=== PATIENT | female | born 1965 | race Caucasian/White ===

== ENCOUNTER → 2018-07-02 | Outpatient (CLI) | payer SELFPAY ==
[~2018-07-02] MED LIST: FLT05NA16 NS; HYDR1TAB PO; LISI10TA PO; LISI20TA PO; LRT10T
== END ==
LOC: CARD 11:36
PROVIDERS: ATTEND Internal Medicine Cardiovascular Disease
DX: R07.89 Other chest pain (principal); I10 Essential (primary) hypertension; E78.5 Hyperlipidemia, unspecified; R06.02 Shortness of breath
CPT/HCPCS: 93306

== ENCOUNTER → 2018-07-10 | Outpatient (CLI) | payer OTHER ==
[~2018-07-10] MED LIST changes: +ALBU2.5V4 INH; +ALPR0.5T PO; +AMLO5TAB9 PO; +LEVO75TA6 PO; +LISI-552 PO
[2018-07-10 15:38] VITALS: BP 134/80
--- NOTE | 2018-07-10 15:38 | Cardiology Stress Test Report ---
Stress Test Report Date of Procedure/Referring: Date of Procedure: July 10, 2018 PCP Portia Elliott Admitting Physician No,Local Physician Indications: CP Baseline Heart Rate: 67 Baseline Blood Pressure: Blood Pressure Systolic: 134 Blood Pressure Diastolic: 80 Baseline EKG: Baseline EKG: sinus rhythm Summary/Conclusion: Summary: In summary, the patient started exercising with a baseline heart rate, blood pressure and EKG mentioned above Patient was able to exercise for a total of 7:30 minutes on Inderjit protocol, 9.1 METs Maximum heart rate 150 Maximum blood pressure 220/88 Stress EKG diffuse T-wave inversion, downsloping [address] depression in 23 aVF V4 V5 and V6 persisted during recovery Recovery EKG persisted during recovery Conclusion: 1. Good exercise tolerance for a total of 7:30 minutes on Inderjit protocol, 9.1 METs, achieving 88 percent of maximum expected heart rate 2. Diffuse ST depression in 23 aVF and V4, V5 and V6 with T-wave inversion persisted during recovery 3. No arrhythmia was noted MELODIE HOOD MD July 10, 2018 15:38
== END ==
LOC: CARD 13:25
PROVIDERS: ATTEND Physician Assistant
DX: R07.89 Other chest pain (principal); I10 Essential (primary) hypertension; R06.02 Shortness of breath
CPT/HCPCS: 93017

== ENCOUNTER 2018-07-17 06:53 | Day surgery (SDC) | payer OTHER ==
[2018-07-17] VITALS (7 sets, daily range): BP systolic 126–168; BP diastolic 72–99
[~2018-07-17] VITALS: Ht 160 cm; Wt 98.0 kg
[~2018-07-17 06:53] MED LIST changes: -ALBU2.5V4 INH; -ALPR0.5T PO; -AMLO5TAB9 PO; -LEVO75TA6 PO; -LISI-552 PO
[2018-07-17] MEDS ORDERED: NS IV 1000 ML 1,000 ML ONE (07:01)
[2018-07-17] MEDS ORDERED: LIDOCAINE 1% INJ 20 ML 20 ML VIAL ONE (07:01)
[2018-07-17] MEDS ORDERED: HEParin (CATH LAB) 2,000 ML IV ONE (07:01)
--- OUTSIDE RECORDS SUMMARY | 2018-07-17 07:27 | XMS REPORT ---
Author Author ANSHUL ROBLES Organization [facility] Address [address] [place] [address] Care Team Providers Care Security Operations Specialist Name Role Phone ANSHUL ROBLES Unavailable PROBLEMS Unknown Problems ALLERGIES No Information ENCOUNTERS Encounter Location Date Diagnosis [facility] [id number] [place] [phone] Sep, [facility] [id number] [place] [id number] Oct, Dental examination Z01.20 [facility] [id number] [place] [id number] Oct, Encounter for dental examination Z01.20 [facility] [id number] [place] [id number] Oct, Dental examination Z01.20 [facility] [id number] [place] [phone] Sep, [facility] [id number] [place] [phone] June, IMMUNIZATIONS No Known Immunizations SOCIAL HISTORY Never Assessed REASON FOR VISIT Vision appt PLAN OF CARE VITAL SIGNS MEDICATIONS Unknown Medications RESULTS No Results PROCEDURES No Known procedures INSTRUCTIONS MEDICATIONS ADMINISTERED No Known Medications MEDICAL (GENERAL) HISTORY Type Description Date Medical History High Blood Pressure
--- OUTSIDE RECORDS SUMMARY | 2018-07-17 07:27 | XMS REPORT ---
Author Author SAL HENSLEY Organization [facility] Address [address] [place] [address] Care Team Providers Care Grounds Crew Supervisor Name Role Phone SAL HENSLEY Unavailable PROBLEMS Type Condition ICD9-CM Code AXT25-UL Code Onset Dates Condition Status SNOMED Code Problem Encounter for dental examination Z01.20 Active 003248539 Assessment Encounter for dental examination Z01.20 Oct, Active [id number] ALLERGIES Substance Reaction Event Type Date Status Valium Unknown Drug Allergy Oct, Active Sulfamethoxazole Unknown Drug Allergy Oct, Active Percocet Unknown Drug Allergy Oct, Active Hydrocodone-Acetaminophen Unknown Drug Allergy Oct, Active Erythromycin Unknown Drug Allergy Oct, Active Codeine Sulfate Unknown Drug Allergy Oct, Active Clarithromycin Unknown Drug Allergy Oct, Active Cipro Unknown Drug Allergy Oct, Active Doxycycline Unknown Drug Allergy Oct, Active beta blockers Unknown Non Drug Allergy Oct, Active steroids Unknown Non Drug Allergy Oct, Active SOCIAL HISTORY No smoking Hx information available PLAN OF CARE VITAL SIGNS Blood pressure systolic 148 mmHg 2015-11-04 Blood pressure diastolic 90 mmHg 2015-11-04 MEDICATIONS Medication Instructions Dosage Frequency Start Date End Date Duration Status Lisinopril Active Levothyroxine Sodium Active RESULTS No Results PROCEDURES Procedure Date Ordered Related Diagnosis Body Site LTD ORAL EVALUATION - PROBLEM FOCUS Nov 04, 2015 INTRAORL-PERIAPICAL 1 FILM 18330 Nov 04, 2015 PRDONTAL SCAL and ROOT PLAN 1-3 TEETH Nov 04, 2015 PANORAMIC FILM SEE ALSO CODE 85372 Nov 04, 2015 Periodontal scaling and root Nov 04, 2015 INTRAORL-PERIAPICAL EA ADD FILM Nov 04, 2015 INTRAORL-PERIAPICAL EA ADD FILM Nov 04, 2015 BITEWINGS - TWO FILMS Nov 04, 2015 INTRAORL-PERIAPICAL EA ADD FILM Nov 04, 2015 IMMUNIZATIONS No Known Immunizations
--- OUTSIDE RECORDS SUMMARY | 2018-07-17 07:27 | XMS REPORT ---
Author ANSHUL Edwards [facility] eClinicalWorks Address Unknown Phone Unavailable Care Team Providers Care Rf Microwave Engineer Name Role Phone ANSHUL ROBLES CP Unavailable Allergies No Known Allergies Problems No Known Problems Medications No Known Medications Results No Known Results Summary Purpose eClinicalWorks Submission
--- OUTSIDE RECORDS SUMMARY | 2018-07-17 07:27 | XMS REPORT | Continuity of Care Document ---
Demographics Preferred Language Unknown Marital Status Unknown Congregational Affiliation Unknown Race Unknown Ethnic Group Unknown Author Organization Unknown Address Unknown Allergies Active Description Code Type Severity Reaction Onset Reported/Identified Relationship to Patient Clinical Status Yes codeine Drug Allergy N/A N/A 08/04/2008 Yes Keflex Drug Allergy N/A N/A 08/04/2008 Yes codeine [id number] Drug Allergy Mild SWELLING 10/03/2008 Yes SEV. ANGLE INHIBITORS SEV. ANGLE INHIBITORS Mild SWELLING 10/03/2008 Yes SEVERAL ANTIBIOTIC SEVERAL ANTIBIOTIC Mild VOMITING 10/03/2008 Yes hydrocodone [id number] Drug Allergy Moderate hives 04/26/2012 Medications There is no data. Problems Date Dx Coded Attending Type Code Diagnosis Diagnosed By 08/04/2008 789.00 ABDOMINAL PAIN UNSPECIFIED SITE 08/25/2008 305.1 NONDEPENDENT TOBACCO USE DISORDER 08/25/2008 401.9 UNSPECIFIED ESSENTIAL HYPERTENSION 08/25/2008 785.6 ENLARGEMENT OF LYMPH NODES 08/26/2008 401.1 HYPERTENSION, BENIGN ESSENTIAL 08/28/2008 477.9 RHINITIS 08/03/2009 724.5 BACKACHE UNSPECIFIED 07/07/2013 MOISÉS JAMESON MD Ot 278.00 OBESITY, NOS 07/07/2013 MOISÉS JAMESON MD Ot 305.1 TOBACCO USE DISORDER 07/07/2013 MOISÉS JAMESON MD Ot 338.29 OTHER CHRONIC PAIN 07/07/2013 MOISÉS JAMESON MD Ot 401.9 HYPERTENSION NOS 07/07/2013 MOISÉS JAMESON MD Ot 724.5 BACKACHE NOS 07/07/2013 MOISÉS JAMESON MD Ot 786.50 CHEST PAIN NOS 07/07/2013 MOISÉS JAMESON MD Ot 789.00 ABDOMINAL PAIN, UNSPECIFIED SITE 07/07/2013 MOISÉS JAMESON MD Ot V85.37 BODY MASS INDEX 37.0-37.9, ADULT 07/04/2018 MELODIE HOOD MD Ot E78.5 HYPERLIPIDEMIA, UNSPECIFIED 07/04/2018 MELODIE HOOD MD Ot I10 ESSENTIAL (PRIMARY) HYPERTENSION 07/04/2018 MELODIE HOOD MD Ot R06.02 SHORTNESS OF BREATH 07/04/2018 MELODIE HOOD MD Ot R07.89 OTHER CHEST PAIN 07/15/2018 MELODIE HOOD MD Ot E78.5 HYPERLIPIDEMIA, UNSPECIFIED 07/15/2018 MELODIE HOOD MD Ot I10 ESSENTIAL (PRIMARY) HYPERTENSION 07/15/2018 MELODIE HOOD MD Ot R06.02 SHORTNESS OF BREATH 07/15/2018 MELODIE HOOD MD Ot R07.89 OTHER CHEST PAIN 07/15/2018 MELODIE HOOD MD, Ot E78.5 HYPERLIPIDEMIA, UNSPECIFIED 07/15/2018 MELODIE HOOD MD Ot I10 ESSENTIAL (PRIMARY) HYPERTENSION 07/15/2018 MELODIE HOOD MD, Ot R06.02 SHORTNESS OF BREATH 07/15/2018 MELODIE HOOD MD Ot R07.89 OTHER CHEST PAIN Procedures There is no data. Results Test Result Range TSH w/ FREE T4 - 06/05/18 08:42 TSH 3.43 mIU/L NRG T4, FREE 1.0 ng/dL 0.8-1.8 LIPID PANEL - 06/05/18 08:42 CHOLESTEROL, TOTAL 226 mg/dL <200 HDL CHOLESTEROL 41 mg/dL >50 TRIGLYCERIDES 233 mg/dL <150 LDL-CHOLESTEROL 147 mg/dL (calc) NRG CHOL/HDLC RATIO 5.5 (calc) <5.0 NON HDL CHOLESTEROL 185 mg/dL (calc) <130 Encounters ACCT No. Visit Date/Time Discharge Status Pt. Type Provider Facility Loc./Unit Complaint [id number] 05/28/2012 07:55:00 Document Registration [id number] 07/11/2018 10:30:00 07/11/2018 23:59:59 CLS Outpatient TAYLOR MERCEDES [facility] [id number] 06/05/2018 08:40:00 Document Registration [id number] 07/10/2018 13:25:00 07/10/2018 23:59:59 CLS Outpatient HENNA GEIGER [facility] CARD OTHER CHEST PAIN,HTN,SOB [id number] 06/12/2018 08:00:00 06/12/2018 23:59:59 CLS Preadmit MELODIE HOOD MD [facility] CARD CHEST TIGHTNESS OR PRESSURE [id number] 06/10/2018 13:00:00 06/10/2018 23:59:59 CLS Outpatient MELODIE HOOD MD [facility] CARD CHEST TIGHTNESS OR PRESSURE [id number] 07/07/2013 10:56:00 07/07/2013 15:53:00 DIS Inpatient GISELL GUAJARDO, MOISÉS Shirley [facility] ICU CHEST PAIN LEFT FLANK PAIN HTN [id number] 07/17/2018 09:00:00 PEN Preadmit MELODIE HOOD MD [facility] CATH ABN STRESS TEST,CAD,CP,HTN
--- OUTSIDE RECORDS SUMMARY | 2018-07-17 07:27 | XMS REPORT ---
Author Author ROQUE HERNÁNDEZ [facility] Address [address], [place] [address] Phone Unavailable Care Team Providers Care Gas Appliance Installer Name Role Phone ROQUE HERNÁNDEZ Unavailable Unavailable PROBLEMS Type Condition ICD9-CM Code [id number] Code Onset Dates Condition Status SNOMED Code Problem Encounter for dental examination Z01.20 Active [id number] Assessment Dental examination Z01.20 Oct, Active [id number] ALLERGIES Substance Reaction Event Type Date Status [...] OF CARE VITAL SIGNS Blood pressure systolic 126 mmHg 2015-11-05 Blood pressure diastolic 76 mmHg 2015-11-05 MEDICATIONS Medication Instructions Dosage Frequency Start Date End Date Duration Status Levothyroxine Sodium Active Lisinopril Active RESULTS No Results PROCEDURES Procedure Date Ordered Related Diagnosis Body Site PERIODIC ORAL EXAMINATION Nov 05, 2015 Periodontal scaling and root Nov 05, 2015 Periodontal scaling and root Nov 05, 2015 IMMUNIZATIONS No Known Immunizations
--- OUTSIDE RECORDS SUMMARY | 2018-07-17 07:27 | XMS REPORT ---
Author Author GAUTAM KERNS [facility] Address Unknown Care Team Providers Care Machine Wood Sander Name Role Phone GAUTAM KERNS Unavailable PROBLEMS Type Condition ICD9-CM Code PEA33-PY Code Onset Dates Condition Status SNOMED Code Problem Encounter for dental examination Z01.20 Active [id number] ALLERGIES Substance Reaction Event Type Date Status [...] OF CARE VITAL SIGNS Blood pressure systolic 143 mmHg 2015-11-04 Blood pressure diastolic 93 mmHg 2015-11-04 MEDICATIONS Medication Instructions Dosage Frequency Start Date End Date Duration Status Lisinopril Active Levothyroxine Sodium Active RESULTS No Results PROCEDURES Procedure Date Ordered Related Diagnosis Body Site Dental no charge Nov 04, 2015 IMMUNIZATIONS No Known Immunizations
[2018-07-17 07:28] LABS: MEAN PLATELET VOLUME 9.2 FL (7.4-10.4); RED CELL DISTRIBUTION WIDTH 13.4 % (10.0-14.5); WHITE BLOOD COUNT 6.8 10^3/uL (4.3-11.0)
[2018-07-17] MEDS ORDERED: ALBU2.5V4 INH (07:28)
[2018-07-17] MEDS ORDERED: AMLO5TAB9 PO (07:28)
[2018-07-17] MEDS ORDERED: LISI-552 PO (07:28)
[2018-07-17] MEDS ORDERED: LEVO75TA6 PO (07:28)
[2018-07-17] MEDS ORDERED: ALPR0.5T PO (07:28)
[2018-07-17 07:29] LABS: BILIRUBIN,URINE NEGATIVE (NEGATIVE); CLARITY,URINE CLEAR; COLOR,URINE YELLOW; GLUCOSE, URINE (UA) NEGATIVE (NEGATIVE); KETONES,URINE NEGATIVE (NEGATIVE); LEUKOCYTE ESTERASE ,URINE NEGATIVE (NEGATIVE); NITRITE,URINE NEGATIVE (NEGATIVE); PH,URINE 5 (5-9); PROTEIN,URINE 1+ (NEGATIVE); UROBILINOGEN,URINE NORMAL (NORMAL)
[2018-07-17 07:37] LABS: BACTERIA,URINE NEGATIVE /HPF; CALCIUM OXALATE CRYSTALS,UR FEW /LPF; WBC,URINE 0-2 /HPF
[2018-07-17 07:41] LABS: INR 0.8 (0.8-1.4); PROTHROMBIN TIME PATIENT 11.6 SEC (12.2-14.7)
--- NOTE | 2018-07-17 07:48 | Diagnostic Imaging Report ---
INDICATION: Coronary artery disease. Comparison is made with prior examination from 07/07/2013. FINDINGS: The heart size, mediastinal configuration, and pulmonary vascularity are within normal limits. There is no pleural effusion, pneumothorax, or pneumonia. The osseous structures are unremarkable. IMPRESSION: No acute cardiopulmonary abnormality. Dictated by: Dictated on workstation # [id number]
[2018-07-17 07:54] LABS: ALANINE AMINOTRANSFERASE 23 U/L (0-55); ALBUMIN 4.5 GM/DL (3.2-4.5); ALKALINE PHOSPHATASE 71 U/L (40-136); BILIRUBIN,TOTAL 0.4 MG/DL (0.1-1.0); BUN/CREATININE RATIO 15; CALCIUM 9.9 MG/DL (8.5-10.1); CARBON DIOXIDE 21 MMOL/L (21-32); CHLORIDE 105 MMOL/L (98-107); CHOLESTEROL 235 MG/DL (< 200); CREATININE SERUM 0.87 MG/DL (0.60-1.30); GFR ESTIMATED > 60; GLUCOSE 111 MG/DL (70-105); HDL CHOLESTEROL 39 MG/DL (40-60); POTASSIUM 3.8 MMOL/L (3.6-5.0); SODIUM 141 MMOL/L (135-145); TOTAL PROTEIN 7.7 GM/DL (6.4-8.2); TRIGLYCERIDES 190 MG/DL (<150); VLDL CHOLESTEROL 38 MG/DL (5-40)
[2018-07-17] MEDS ORDERED: MIDAZOLAM 5 MG/5 ML (VERSED) VIAL ONE (08:21)
[2018-07-17] MEDS ORDERED: fentaNYL INJECTION 100 MCG/2 ML AMP ONE (08:21)
[2018-07-17] MEDS ORDERED: VERAPAMIL 5 MG/2 ML (CALAN) VIAL IV ONE (08:21)
[2018-07-17] MEDS ORDERED: NITRO DRIP 25000 MCG/D5W 250 ML IV ONE (08:21)
[2018-07-17] MEDS ORDERED: HEParin 1000 UNIT/ML (10ML VIAL) FOR BOLUS ONE (08:21)
--- NOTE | 2018-07-17 08:56 | Cardiac Procedure Note-CS/ASA ---
Pre-Procedure Note Pre-Op Procedure Note H&P Reviewed The H&P was reviewed, patient examined and no changes noted. Date H&P Reviewed: July 17, 2018 Time H&P Reviewed: 08:55 Conscious Sedation Pre-Proced Time 08:55 ASA Score 3 For ASA 3 and 4: Consider anesthesia and medical clearance. Also, for patients with a history of failed moderate sedation consider anesthesia. Airway Lungs Heart ASA score ASA 1: a normal healthy patient ASA 2: a patient with a mild systemic disease (mid diabetes, controlled hypertension, obesity x ASA 3: a patient with a severe systemic disease that limits activity (angina, COPD, prior Myocardial infarction) ASA 4: a patient with an incapacitating disease that is a constant threat to life (CHF, renal failure) ASA 5: a moribund patient not expected to survive 24 hrs. (ruptured aneurysm) ASA 6: a declared brain- patient whose organs are being harvested. For emergent operations, add the letter E after the classification Mallampati Classification Grade 3 Sedation Plan Analgesia, Amnesia, Plan communicated to team members, Discussed options with patient/fam, Discussed risks with patient/fam The patient is an appropriate candidate to undergo the planned procedure, sedation, and anesthesia. The patient immediately re-assessed prior to indication. MELODIE HOOD MD July 17, 2018 08:56
[2018-07-17] MEDS ORDERED: ASPIRIN 325 MG (5 GR) TABLET ONE (09:18)
[2018-07-17] MEDS ORDERED: TICAGRELOR 90 MG TABLET (BRILINTA) PO ONE (09:18)
--- NOTE | 2018-07-17 09:29 | Cardiac Cath Report ---
Cardiac Cath Report Physician (s)/Field Service Specialist (s) Physician MELODIE HOOD MD Pre-Procedure Diagnosis Pre-Procedure Diagnosis: coronary artery disease Post-Procedure Note Procedure Start Date: July 17, 2018 Name of Procedure: left heart catheterization Primary stenting to the right coronary artery Findings/Procedure Note PROCEDURE NOTE: After explaining the procedure to the patient, all pros and cons were explained, all questions were answered. The patient signed the consent and then she was placed on the cardiac catheterization laboratory. Groin was prepped SL fashion local anesthesia was used. Sheath placed in the right radial artery. [place] catheter was used to access the coronary system, angiogram was done, prolapse of the left ventricular cavity and left ventriculogram was done, pullback LV to aorta was then. Patient had 90 percent stenosis in the mid right coronary artery, large dominant artery, given 7000 additional units of heparin then FR guide was advanced, BMW wire was advanced across the lesion parked distally then primary stenting using Mabel 3.5 x 18 mm expanded under 16 jose to 3.75 millimeter with excellent results, no complication noted At the end of the procedure the sheath was removed. Closure device was used with vascular band FINDINGS: Hemodynamics LV 113/7, end-diastolic pressure of 7 Aorta 122/77 mean of 99 ANATOMY: Left Main is free of obstructive disease Left Anterior Descending is tortuous with mild disease Left Circumflex has mild disease nonobstructive disease Right Coronory Artery is large dominant artery with 90 percent stenosis and ulcerated plaque in the midportion successful primary stenting using Mabel 3.5 x 18 mm expanded to 3.75 mm with a 16 jose with excellent results LV Gram was done showing normal left ventricular size with normal contraction of the no segmental wall motion abnormalities and ejection fraction 60 percent CONCLUSION: 1. Successful primary stenting to 90 percent stenosis of the midright coronary artery using drug coated stent Mabel 3.5 x 18 mm expanded to 3.75 mm with excellent results 2. Mild disease in the left coronary system 3. Normal left ventricular size and systolic function estimated ejection fraction 60 percent 4. Diagnostic cardiac catheterization and percutaneous intervention done through radial access DISCUSSION AND RECOMMENDATION: I will start the patient on aspirin and Brilinta in addition she has hyperlipidemia, she will be started on Lipitor and follow up as an outpatient Anesthesia Type: Conscious Sedation Estimated blood loss (mL): 15 ml Contrast Amount: 97 ml Total Radiation Dose: 729 mGy Post-Procedure Diagnosis Post-operative diagnosis: Chest pain Coronary artery disease Hypertension Hyperlipidemia MELODIE HOOD MD July 17, 2018 09:29
[2018-07-17] MEDS ORDERED: ALPRAZolam 0.5 MG (XANAX) TAB PO PRN (09:30)
[2018-07-17] MEDS ORDERED: RT-ALBUTEROL SULF 2.5 MG/3 ML PRE-MIX VIAL INH PRN (09:30)
[2018-07-17] MEDS: NS IV 1000 ML 1,000 ML IV SCH ×3 (11:43→17:11)
[2018-07-17] MEDS: TICAGRELOR 90 MG TABLET (BRILINTA) PO SCH (20:47)
[2018-07-17] MEDS ORDERED: ATORVASTATIN 10 MG (LIPITOR) TABLET PO SCH (21:00)
--- NOTE | 2018-07-17 22:56 | NUR ---
pt reported to this rn that in the past when she had been prescribed Lipitor, she was unable to obtain it due to financial difficulties. this rn explained to this pt that it this financial difficulty is still present speak with the doctor prior to discharge about her medications. pt stated that she would. this rn also placed a social service consult in for this pt.
[2018-07-18 00:21] VITALS: BP 127/79
[2018-07-18] MEDS: NS IV 1000 ML 1,000 ML IV SCH ×3 (00:21→04:37)
[2018-07-18 03:48] LABS: MEAN PLATELET VOLUME 9.2 FL (7.4-10.4); WHITE BLOOD COUNT 7.4 10^3/uL (4.3-11.0)
[2018-07-18 03:51] VITALS: BP 137/71
[2018-07-18 04:10] LABS: ALANINE AMINOTRANSFERASE 20 U/L (0-55); ALBUMIN 3.7 GM/DL (3.2-4.5); ALKALINE PHOSPHATASE 55 U/L (40-136); BILIRUBIN,TOTAL 0.6 MG/DL (0.1-1.0); BUN/CREATININE RATIO 16; CALCIUM 8.9 MG/DL (8.5-10.1); CARBON DIOXIDE 20 MMOL/L (21-32); CHLORIDE 108 MMOL/L (98-107); CREATININE SERUM 0.85 MG/DL (0.60-1.30); GFR ESTIMATED > 60; GLUCOSE 96 MG/DL (70-105); POTASSIUM 3.7 MMOL/L (3.6-5.0); SODIUM 138 MMOL/L (135-145); TOTAL PROTEIN 6.2 GM/DL (6.4-8.2)
--- NOTE | 2018-07-18 05:02 | NUR ---
this rn provided pt with Brilinta tank car reconditioner coupon to assist her with the cost of the medication upon discharge
[2018-07-18 08:00] VITALS: BP 165/90
--- NOTE | 2018-07-18 08:06 | Cardiology History & Physical ---
HPI-Cardiology Cardiology Consultation Date of Consultation 07/17/18 Date of Admission July 17, 2018 Time Seen by Provider: 09:00 Indication: chest pain HPI 52 years old lady with recurrent chest pain, had a stress test which was abnormal, had EKG changes suggestive of ischemia. Has history of hypertension and hyperlipidemia. She was scheduled for cardiac catheterization PMH-Cardiology Immunizations Up To Date Tetanus Booster (DTap): Less than 5yrs Surgeries Gall Bladder, Tubal Ligation, Section Respiratory No Cardiovascular Yes High Cholesterol, Hypertension Neurological No Reproductive System Hx Reproductive Disorders: No Sexually Transmitted Disease: No HIV/AIDS: No Female Reproductive Disorders: Denies Genitourinary No Gastrointestinal Yes Gastroesophageal Reflux Musculoskeletal Chronic Back Pain HEENT Cataract Loss of Vision: Denies Hearing Impairment: Denies Cancer No Social History Patient Social History Marrital Status: Employed/Student: unemployed Alcohol Use: Denies Use Recreational Drug Use: Yes Recent Foreign Travel: No Contact w/other who traveled: No Recent Infectious Disease Expo: No Family Hx Significant Family History: Hypertension Other reporting family history of coronary artery disease ROS-Cardiology Review of Systems General: No Chills, No Night Sweats, No Fatigue, No Malaise, No Appetite HEENT: No Head Aches, No Visual Changes, No Eye Pain, No Ear Pain, No Dysphasia, No Sinus Congestion, No Post Nasal Drip, No Sore Throat Pulmonary: No Dyspnea, No Cough, No Pleuritic Chest Pain Cardiovascular: Chest Pain; No: Palpitations, Orthopnea, Paroxysmal Noc. Dyspnea, Edema, Lt Headedness Gastrointestinal: No: Nausea, Vomiting, Abdominal Pain, Diarrhea, Constipation, Melena, Hematochezia Genitourinary: No Dysuria, No Frequency, No Incontinence, No Hematuria, No Retention Musculoskeletal: No: neck pain, shoulder pain, arm pain, back pain, hand pain, leg pain, foot pain Neurological: No: Weakness, Numbness, Incoordination, Change in speech, Confusion, Seizures Home Medications & Allergies Allergies: Coded Allergies: codeine (Unverified Allergy, Mild, SWELLING, 10/03/08) hydrocodone (Unverified Adverse Reaction, Intermediate, hives, 04/26/12) Uncoded Allergies: SEV. ANGLE INHIBITORS (Allergy, Mild, SWELLING, 10/03/08) SEVERAL ANTIBIOTIC (Allergy, Mild, VOMITING, 10/03/08) Exam-Cardiology Vital Signs Vital Signs Date Time Temp Pulse Resp B/P (MAP) Pulse Ox O2 Delivery O2 Flow Rate FiO2 07/18/18 04:07 Room Air 07/18/18 03:51 97.0 58 18 137/71 (93) 96 Exam General Appearance: Alert, Oriented X3, Cooperative, No Acute Distress HEENT: Atraumatic, PERRLA Respiratory: Clear to Auscultation, Normal Air Movement Cardiovascular: Regular Rate, Normal S1, Normal S2, No Murmurs Abdominal: Normal Bowel Sounds, Soft, No Tenderness, No Hepatosplenomegaly, No Masses Extremities: No Clubbing, No Cyanosis, No Edema, Normal Pulses, No Tenderness/Swelling Skin: No Rashes, No Breakdown, No Significant Lesion Neuro: Normal Gait, Normal Speech, Strength at 5/5 X4 Ext, Normal Tone, Sensation Intact Psych/Mental Status: Mental Status NL, Mood NL Results Labs Labs Laboratory Tests 07/18/18 03:35: White Blood Count 7.4, Red Blood Count 4.43, Hemoglobin 14.0, Hematocrit 40, Mean Corpuscular Volume 90, Mean Corpuscular Hemoglobin 32, Mean Corpuscular Hemoglobin Concent 35, Red Cell Distribution Width 13.0, Platelet Count 226, Mean Platelet Volume 9.2, Sodium Level 138, Potassium Level 3.7, Chloride Level 108H, Carbon Dioxide Level 20L, Anion Gap 10, Blood Urea Nitrogen 14, Creatinine 0.85, Estimat Glomerular Filtration Rate > 60, BUN/Creatinine Ratio 16, Glucose Level 96, Calcium Level 8.9, Corrected Calcium 9.1, Total Bilirubin 0.6, Aspartate Amino Transf (AST/SGOT) 19, Alanine Aminotransferase (ALT/SGPT) 20, Alkaline Phosphatase 55, Total Protein 6.2L, Albumin 3.7 A/P-Cardiology Admission Diagnosis chest pain Coronary artery disease Hypertension Hyperlipidemia Admission Status: Observation Assessment/Plan chest pain, abnormal stress test, planning for cardiac catheterization Coronary artery disease, planning for cardiac catheterization Hypertension, continue medication Hyperlipidemia start statin Clinical Quality Measures DVT/VTE Risk/Contraindication: Risk Factor Score Per Nursin RFS Level Per Nursing on Admit: 4+=Very High MELODIE HOOD MD July 18, 2018 08:06
--- NOTE | 2018-07-18 08:07 | Cardiology Progress Note ---
Subjective Date Seen by Provider: July 18, 2018 Time Seen by Provider: 08:06 Subjective/Events-last exam patient is laying down in bed, feeling better, had mild chest discomfort earlier today. Review of Systems General: No Chills, No Night Sweats, No Fatigue, No Malaise, No Appetite, No Other HEENT: No Head Aches, No Visual Changes, No Eye Pain, No Ear Pain, No Dysph kishan, No Sinus Congestion, No Post Nasal Drip, No Sore Throat, No Other Pulmonary: No Dyspnea, No Cough, No Pleuritic Chest Pain, No Other Cardiovascular: No: Chest Pain, Palpitations, Orthopnea, Paroxysmal Noc. Dyspnea, Edema, Lt Headedness, Other Objective-Cardiology Exam Last Set of Vital Signs Vital Signs 07/18/18 07/18/18 07/18/18 03:51 04:07 07:00 Temp 97.0 Pulse 56 Resp 18 B/P (MAP) 137/71 (93) Pulse Ox 96 O2 Delivery Room Air Capillary Refill : Less Than 3 Seconds I&O Intake and Output 07/18/18 00:00 Intake Total 940 ml Balance 940 ml Intake Oral 940 ml # Voids 3 Daily Weight Change No General: Alert, Oriented X3, Cooperative, No Acute Distress HEENT: Atraumatic, PERRLA Lungs: Clear to Auscultation, Normal Air Movement Heart: Regular Rate, Normal S1, Normal S2, No Murmurs Abdomen: Normal Bowel Sounds, Soft, No Tenderness, No Hepatosplenomegaly, No Ma sses Extremities: No Clubbing, No Cyanosis, No Edema, Normal Pulses, No Tender ness/Swelling Skin: No Rashes, No Breakdown, No Significant Lesion Neuro: Normal Gait, Normal Speech, Strength at 5/5 X4 Ext, Normal Tone, Sensation Intact Psych/Mental Status: Mental Status NL, Mood NL Results Lab Laboratory Tests 07/18/18 03:35 A/P-Cardiology Admission Diagnosis chest pain Coronary artery disease Hypertension Hyperlipidemia Assessment/Plan Chest pain, status post cardiac catheterization with stenting to the right coronary artery 1. Successful primary stenting to 90 percent stenosis of the midright coronary artery using drug coated stent Mabel 3.5 x 18 mm expanded to 3.75 mm with excellent results 2. Mild disease in the left coronary system 3. Normal left ventricular size and systolic function estimated ejection fraction 60 percent 4. Diagnostic cardiac catheterization and percutaneous intervention done through radial access Coronary artery disease, as described above, educated in length about compliance with medication especially aspirin and Brilinta and given coupon for 30 days. Supplies neck Hypertension, continue on lisinopril and monitor blood pressure Hyperlipidemia, started back on Lipitor, educated on compliance with medication. Hypothyroidism, managed and followed by primary care physician Anxiety, managed and followed by primary care physician Clinical Quality Measures DVT/VTE Risk/Contraindication: Risk Factor Score Per Nursin RFS Level Per Nursing on Admit: 4+=Very High MELODIE HOOD MD July 18, 2018 08:07
[2018-07-18] MEDS ORDERED: ASPI-983 PO (08:09)
[2018-07-18] MEDS ORDERED: TICA90TA PO (08:09)
[2018-07-18] MEDS ORDERED: ATOR10TA66 PO (08:09)
--- NOTE | 2018-07-18 08:09 | Discharge Inst-Post CATH ---
Discharge Inst-CATH/EP Post Cardiac Cath/EP D/C Inst Follow Up/Plan Appointment with Dr. HOOD's office in 2-4 weeks <b>CARDIAC CATH/EP PROCEDURE DISCHARGE INSTRUCTIONS</b> Cardiac Rehab Please be expecting a follow up call from Cardiac Rehab within in one week. ACTIVITY * Go Home directly and rest. * Limit activity of the leg (or wrist if it was used) for 7 days including aerobics, swimming, jogging, bicycling, etc. * Restrict stair-climbing for 7 days if possible, if not, climb up with your non-cath leg, then bring together on the same step. * Avoid lifting, pushing, pulling or excessive movement of the affected extremity for 7 days. * Customary sexual activity may be resumed after 2 days-use caution not to use a position that strains or causes pain to the affected extremity. * No driving for 24 hours. * NO SMOKING. * Avoid straining for bowel movements for 7 days. * Gentle walking on level ground is allowed. * Returning to work will depend on the type of procedure and the results. Your doctor will discuss this with you. CALL YOUR DOCTOR FOR ANY OF THE FOLLOWING: *If bleeding from the puncture site occurs- Apply gentle pressure to site with clean cloth and call your doctor or EMS. * If a knot or lump forms under the skin, increases in size, or causes pain. * If bruising appears to be worsening or moving further down your leg instead of disappearing. * Temperature above 101 F. CARE OF YOUR GROIN INCISION; * Bruising or purple discoloration of the skin near the puncture site is common. * You may shower only, no bathtub bathing for 5 days. Be careful to avoid slipping as your leg may feel stiff. * If a closure device was used on your femoral artery, please see the attached guide regarding care of the device and your leg. * Leave dressing on FOR 24 hours. CARE OF YOUR WRIST INCISION; * Bruising or purple discoloration of the skin near the puncture site is common. * You may shower. * DO NOT submerge wrist. * Leave dressing on FOR 24 hours. MELODIE HOOD MD July 18, 2018 08:09
[2018-07-18] MEDS: TICAGRELOR 90 MG TABLET (BRILINTA) PO SCH (08:22)
[2018-07-18] MEDS ORDERED: LEVOTHYROXINE 75 MCG (LEVOTHROID) TABLET PO SCH (09:00)
[2018-07-18] MEDS ORDERED: lisINopril 20 MG (PRINIVIL) TABLET PO SCH (09:00)
[2018-07-18] MEDS ORDERED: amLODIPine 5 MG (NORVASC) TAB PO SCH (09:00)
[2018-07-18] MEDS ORDERED: ASPIRIN E.C. 81 MG (ECOTRIN) TAB PO SCH (09:00)
--- NOTE | 2018-07-18 09:45 | NUR ---
CM/SS patient had already discharged when attempted to respond to consult. RNing assisted with rx assistance.
== END 2018-07-18 09:00 | disposition home or self-care (01) ==
LOC: CATH 06:53 → ICU 09:50 → CATH 07-18 09:00
PROVIDERS: ATTEND Internal Medicine Cardiovascular Disease
DX: I25.111 Atherosclerotic heart disease of native coronary artery with angina pectoris with documented spasm (principal); I10 Essential (primary) hypertension; E78.5 Hyperlipidemia, unspecified; E03.9 Hypothyroidism, unspecified; F41.9 Anxiety disorder, unspecified; J30.9 Allergic rhinitis, unspecified; Z79.899 Other long term (current) drug therapy; Z88.1 Allergy status to other antibiotic agents; Z88.2 Allergy status to sulfonamides; F17.210 Nicotine dependence, cigarettes, uncomplicated; Z82.49 Family history of ischemic heart disease and other diseases of the circulatory system; E66.9 Obesity, unspecified; I08.1 Rheumatic disorders of both mitral and tricuspid valves; K21.9 Gastro-esophageal reflux disease without esophagitis; Z88.5 Allergy status to narcotic agent; Z11.2 Encounter for screening for other bacterial diseases; Z68.38 Body mass index [BMI] 38.0-38.9, adult
CPT/HCPCS: 36415; 71045; 80053; 80061; 81000; 85027; 85347; 85610; 85730; 87081; 93005; 93458

== ENCOUNTER 2018-10-14 08:55 | Emergency (ER) | payer OTHER ==
[~2018-10-14] VITALS: Ht 160 cm; Wt 98.9 kg
[~2018-10-14 08:55] MED LIST changes: +ALBU2.5V4 INH; +ALPR0.5T PO; +AMLO5TAB9 PO; +ASPI-983 PO; +ATOR10TA66 PO; +LEVO75TA6 PO; +LISI-552 PO; +TICA90TA PO
[2018-10-14 09:46] LABS: BASOPHILS % (AUTO) 1 % (0-10); EOSINOPHILS # (AUTO) 0.1 10^3/uL (0.0-0.3); EOSINOPHILS % (AUTO) 2 % (0-10); HEMATOCRIT 41 % (35-52); HEMOGLOBIN 13.8 G/DL (11.5-16.0); LYMPHOCYTES # (AUTO) 2.2 X 10^3 (1.0-4.0); LYMPHOCYTES % (AUTO) 32 % (12-44); MEAN CORPUSCULAR HEMOGLOBIN 31 PG (25-34); MEAN CORPUSCULAR HGB CONC 34 G/DL (32-36); MEAN CORPUSCULAR VOLUME 93 FL (80-99); MEAN PLATELET VOLUME 8.9 FL (7.4-10.4); MONOCYTES # (AUTO) 0.4 X 10^3 (0.0-1.0); MONOCYTES % (AUTO) 5 % (0-12); NEUTROPHILS # (AUTO) 4.1 X 10^3 (1.8-7.8); NEUTROPHILS % (AUTO) 60 % (42-75); PLATELET COUNT 301 10^3/uL (130-400); RED CELL DISTRIBUTION WIDTH 13.4 % (10.0-14.5); WHITE BLOOD COUNT 6.8 10^3/uL (4.3-11.0)
[2018-10-14 09:49] LABS: INR 0.9 (0.8-1.4); PROTHROMBIN TIME PATIENT 12.8 SEC (12.2-14.7)
[2018-10-14 09:59] LABS: ALANINE AMINOTRANSFERASE 25 U/L (0-55); ALBUMIN 4.4 GM/DL (3.2-4.5); ALKALINE PHOSPHATASE 79 U/L (40-136); BILIRUBIN,TOTAL 0.7 MG/DL (0.1-1.0); BUN/CREATININE RATIO 16; CALCIUM 9.5 MG/DL (8.5-10.1); CARBON DIOXIDE 23 MMOL/L (21-32); CHLORIDE 106 MMOL/L (98-107); GFR ESTIMATED > 60; GLUCOSE 174 MG/DL (70-105); POTASSIUM 3.4 MMOL/L (3.6-5.0); SODIUM 140 MMOL/L (135-145); TOTAL PROTEIN 7.5 GM/DL (6.4-8.2)
--- NOTE | 2018-10-14 11:08 | ED GI ---
General Chief Complaint: Rect Problems Stated Complaint: BLOOD IN STOOL;NAUSEA Nursing Triage Note: PT AMBULATE TO ROOM 06 WITH C/O NAUSEA SINCE LAST NIGHT AND A BLOODY STOOL THIS MORNING. PT STATES STOMACH FELT "WEIRD" THIS MORNING THEN THAT WENT AWAY. PT STATES HX OF HEMORRHOIDS. Sepsis Screen: No Definite Risk Source of Information: Patient Exam Limitations: No Limitations History of Present Illness Date Seen by Provider: Oct 14, 2018 Time Seen by Provider: 09:35 Initial Comments This 52-year-old woman presents to the emergency room with complaints of bright red blood per rectum and foul smelling stool today. She denies any pain. She did have nausea this morning has diminished. She is on Brilinta and aspirin due to heart disease. She had a colonoscopy in January the [facility] which was reportedly negative. She has had history of rectal fistula repair and hemorrhoidectomy in the past. She is not bleeding at present. Patient also mentioned that she had experienced some left lateral chest pain intermittently over the past couple of days. She does not have pain now. Allergies and Home Medications Allergies Coded Allergies: codeine (Unverified Allergy, Mild, SWELLING, 10/03/08) hydrocodone (Unverified Adverse Reaction, Intermediate, hives, 04/26/12) Uncoded Allergies: SEV. ANGLE INHIBITORS (Allergy, Mild, SWELLING, 10/03/08) SEVERAL ANTIBIOTIC (Allergy, Mild, VOMITING, 10/03/08) Home Medications Albuterol Sulfate 2.5 Mg/3 Ml Vial.neb, 2.5 MG INH PRN PRN for SHORTNESS OF BREATH, (Reported) Alprazolam 0.5 Mg Tablet, 0.5 MG PO PRN PRN for ANXIETY, (Reported) Amlodipine Besylate 5 Mg Tablet, 5 MG PO DAILY, (Reported) Aspirin 81 Mg Tablet.dr, 81 MG PO DAILY Prescribed by: MELODIE HOOD on 07/18/18808 Atorvastatin Calcium 10 Mg Tablet, 10 MG PO HS Prescribed by: MELODIE HOOD on 07/18/18808 Levothyroxine Sodium 75 Mcg Tablet, 75 MCG PO DAILY, (Reported) Lisinopril 20 Mg Tablet, 20 MG PO DAILY, (Reported) Ticagrelor 90 Mg Tablet, 90 MG PO BID Prescribed by: MELODIE HOOD on 07/18/18 08 Patient Home Medication List Home Medication List Reviewed: Yes Review of Systems Review of Systems Constitutional: no symptoms reported EENTM: No Symptoms Reported Respiratory: No Symptoms Reported Cardiovascular: See HPI Gastrointestinal: See HPI Genitourinary: No Symptoms Reported Musculoskeletal: no symptoms reported Skin: no symptoms reported Psychiatric/Neurological: No Symptoms Reported Endocrine: No Symptoms Reported Hematologic/Lymphatic: See HPI Past Dzqqbuo-Lazbng-Kzttll Hx Past Med/Social Hx: Reviewed and Corrections made Patient Social History Alcohol Use: Denies Use Recreational Drug Use: Yes (SMOKES 1PPD) Drug of Choice: MARIJUANA Smoking Status: Current Everyday Smoker Type Used: Cigarettes 2nd Hand Smoke Exposure: No Recent Foreign Travel: No Contact w/Someone Who Travel: No Recent Infectious Disease Expo: No Recent Hopitalizations: No Physical Abuse: No Sexual Abuse: No Mistreated: No Fear: No Immunizations Up To Date Tetanus Booster (TDap): Less than 5yrs Seasonal Allergies Seasonal Allergies: Yes Past Medical History Surgeries: Yes (ANAL FISTULA, COLONSCOPY, resection of vocal cord polyps) Section, Coronary Stent, Eye Surgery (cataracts), Thyroidectomy (thyroid ablation), Tubal Ligation Respiratory: No Currently Using CPAP: No Currently Using BIPAP: No Cardiac: Yes Coronary Artery Disease, High Cholesterol, Hypertension Neurological: No : No Reproductive Disorders: No Female Reproductive Disorders: Denies Sexually Transmitted Disease: No HIV/AIDS: No Genitourinary: No Gastrointestinal: Yes Gastroesophageal Reflux, Hemorrhoids Musculoskeletal: Yes Chronic Back Pain Endocrine: Yes Hypothyroidsim HEENT: Yes Cataract Loss of Vision: Denies Hearing Impairment: Denies Cancer: No Psychosocial: Yes Anxiety Integumentary: No Blood Disorders: No Family Medical History Hypertension Physical Exam Vital Signs Vital Signs - First Documented 10/14/18 09:03 Temp 98.7 Pulse 84 Resp 15 B/P (MAP) 162/96 (118) Pulse Ox 97 O2 Delivery Room Air Capillary Refill : Less Than 3 Seconds Height/Weight/BMI Height: 5'3.00" Weight: 218lbs. 0.0oz. 98.872784tr; 39.7 BMI Method:Stated General Appearance: WD/WN, no apparent distress HEENT: normal ENT inspection Neck: normal inspection Respiratory: lungs clear, normal breath sounds, no respiratory distress, no accessory muscle use Cardiovascular: regular rate, rhythm, no edema, no murmur Gastrointestinal: normal bowel sounds, non tender, soft Rectal: normal exam, normal rectal tone, heme negative stool, other (small firm area at the 12 o'clock position likely representing scar tissue. No masses or active bleeding.) Extremities: normal inspection, no pedal edema Neurologic/Psychiatric: oyster opener II-XII nml as tested, no motor/sensory deficits, alert, normal mood/affect, oriented x 3 Skin: normal color, warm/dry Progress/Results/Core Measures Results/Orders Lab Results Laboratory Tests Test 10/14/18 09:19 Range/Units White Blood Count 6.8 4.3-11.0 10^3/uL Red Blood Count 4.40 4.35-5.85 10^6/uL Hemoglobin 13.8 11.5-16.0 G/DL Hematocrit 41 35-52 % Mean Corpuscular Volume 93 80-99 FL Mean Corpuscular Hemoglobin 31 25-34 PG Mean Corpuscular Hemoglobin Concent 34 32-36 G/DL Red Cell Distribution Width 13.4 10.0-14.5 % Platelet Count 301 130-400 10^3/uL Mean Platelet Volume 8.9 7.4-10.4 FL Neutrophils (%) (Auto) 60 42-75 % Lymphocytes (%) (Auto) 32 12-44 % Monocytes (%) (Auto) 5 0-12 % Eosinophils (%) (Auto) 2 0-10 % Basophils (%) (Auto) 1 0-10 % Neutrophils # (Auto) 4.1 1.8-7.8 X 10^3 Lymphocytes # (Auto) 2.2 1.0-4.0 X 10^3 Monocytes # (Auto) 0.4 0.0-1.0 X 10^3 Eosinophils # (Auto) 0.1 0.0-0.3 10^3/uL Basophils # (Auto) 0.0 0.0-0.1 10^3/uL Prothrombin Time 12.8 12.2-14.7 SEC INR Comment 0.9 0.8-1.4 Activated Partial Thromboplast Time 34 24-35 SEC Sodium Level 140 135-145 MMOL/L Potassium Level 3.4 L 3.6-5.0 MMOL/L Chloride Level 106 98-107 MMOL/L Carbon Dioxide Level 23 21-32 MMOL/L Anion Gap 11 5-14 MMOL/L Blood Urea Nitrogen 14 7-18 MG/DL Creatinine 0.90 0.60-1.30 MG/DL Estimat Glomerular Filtration Rate > 60 BUN/Creatinine Ratio 16 Glucose Level 174 H 70-105 MG/DL Calcium Level 9.5 8.5-10.1 MG/DL Corrected Calcium 9.2 8.5-10.1 MG/DL Total Bilirubin 0.7 0.1-1.0 MG/DL Aspartate Amino Transf (AST/SGOT) 27 5-34 U/L Alanine Aminotransferase (ALT/SGPT) 25 0-55 U/L Alkaline Phosphatase 79 40-136 U/L Troponin I < 0.028 <0.028 NG/ML Total Protein 7.5 6.4-8.2 GM/DL Albumin 4.4 3.2-4.5 GM/DL My Orders Orders - SJ PAZ MD Cbc With Automated Diff (10/14/18 09:35) Comprehensive Metabolic Panel (10/14/18 09:35) Protime With Inr (10/14/18 09:35) Partial Thromboplastin Time (10/14/18 09:35) Ed Iv/Invasive Line Start (10/14/18 09:35) Fecal Occult Bedside (10/14/18 09:35) Ekg Tracing (10/14/18 09:50) Monitor-Rhythm Ecg Trace Only (10/14/18 09:50) Troponin I (10/14/18 09:50) Vital Signs/I&O 10/14/18 10/14/18 09:03 11:20 Temp 98.7 Pulse 84 62 Resp 15 14 B/P (MAP) 162/96 (118) 111/71 (84) Pulse Ox 97 99 O2 Delivery Room Air Room Air Blood Pressure Mean: 118 Fecal Occult: Negative Progress Progress Note : Progress Note Workup was unremarkable. Patient had no further bleeding in the ER. She was discharged to outpatient follow-up. Initial ECG Impression Date: Oct 14, 2018 Initial ECG Impression Time: 09:58 Initial ECG Rate: 67 Initial ECG Rhythm: Normal Sinus Initial ECG Intervals: Normal Initial ECG Impression: Normal Departure Impression Primary Impression: Rectal bleeding Additional Impression: Chest pain Qualified Codes: R07.9 - Chest pain, unspecified Disposition: 01 HOME, SELF-CARE Condition: Stable Departure-Patient Inst. Decision time for Depature: 11:07 Referrals: NO,LOCAL PHYSICIAN (PCP) Primary Care Physician MERCEDES TAYLOR (Family) Primary Care Physician Patient Instructions: Chest Pain (DC), Bloody Stools Add. Discharge Instructions: Continue your medications as previously prescribed. Follow-up with your primary care provider and specialty department supervisor as soon as possible. Return to the emergency room if you have worsening symptoms. All discharge instructions reviewed with patient and/or family. Voiced understanding. Copy Copies To 1: MELODIE HOOD MD, JOSHUA T MD Oct 14, 2018 11:08
[2018-10-14 11:20] VITALS: BP 111/71
== END 2018-10-14 11:20 | disposition home or self-care (01) ==
LOC: EDUNIT# 08:55 → ER 08:56
DX: K62.5 Hemorrhage of anus and rectum (principal); R07.9 Chest pain, unspecified; I10 Essential (primary) hypertension; E78.00 Pure hypercholesterolemia, unspecified; I25.10 Atherosclerotic heart disease of native coronary artery without angina pectoris; K21.9 Gastro-esophageal reflux disease without esophagitis; E03.9 Hypothyroidism, unspecified; R41.9 Unspecified symptoms and signs involving cognitive functions and awareness; F17.210 Nicotine dependence, cigarettes, uncomplicated; Z88.5 Allergy status to narcotic agent; Z88.8 Allergy status to other drugs, medicaments and biological substances; Z79.82 Long term (current) use of aspirin; Z95.5 Presence of coronary angioplasty implant and graft; Z98.51 Tubal ligation status; Z82.49 Family history of ischemic heart disease and other diseases of the circulatory system
CPT/HCPCS: 36415; 80053; 82274; 84484; 85025; 85610; 85730; 93005; 93041

== ENCOUNTER 2018-12-05 08:48 | Emergency (ER) | payer OTHER ==
[~2018-12-05] VITALS: Ht 160 cm; Wt 96.0 kg
--- NOTE | 2018-12-05 09:07 | ED Chest Pain ---
General Stated Complaint: CHEST PRESSURE;HIGH BP Source: patient, spouse Exam Limitations: no limitations History of Present Illness Date Seen by Provider: Dec 05, 2018 Time Seen by Provider: 08:54 Initial Comments Patient presents to ER by private conveyance with her significant other and chief complaint of pressure in the center of her chest radiating through to her back causing some back pain about the bra line. She started about an hour prior to arrival. She has a history of coronary disease with stent known to Dr. Delong. She follows with Chantelle taylor. She's been without insurance and has not been following for the past year or so. She does take her medicines routinely she is on Brilinta as well as aspirin and she took 81 mg morning. She does not take nitroglycerin. She denies having chest pain just chest pressure the pain is in her back. She denies shortness of breath cough fever but she does have some malaise for the past couple days. She has a history of GERD but does not take an ything for it anymore after being on Protonix for couple years and having a EGD. She's had her gallbladder surgically removed. She's postmenopausal. She is not having any nausea fever chills sweats. She does not have diabetes but she does have hypertension, hyperlipidemia and smokes about one half to one pack of cigarettes per day. The patient rates her discomfort as a 5 out of 10 initially. She said with her previous stent placement she was not having any chest pain. Allergies and Home Medications Allergies Coded Allergies: codeine (Unverified Allergy, Mild, SWELLING, 10/03/08) hydrocodone (Unverified Adverse Reaction, Intermediate, hives, 04/26/12) Uncoded Allergies: SEV. ANGLE INHIBITORS (Allergy, Mild, SWELLING, 10/03/08) SEVERAL ANTIBIOTIC (Allergy, Mild, VOMITING, 10/03/08) Home Medications Albuterol Sulfate 2.5 Mg/3 Ml Vial.neb, 2.5 MG INH PRN PRN for SHORTNESS OF BREATH, (Reported) Alprazolam 0.5 Mg Tablet, 0.5 MG PO PRN PRN for ANXIETY, (Reported) Amlodipine Besylate 5 Mg Tablet, 5 MG PO DAILY, (Reported) Aspirin 81 Mg Tablet., 81 MG PO DAILY Prescribed by: MELODIE DELONG on 07/18/18 0809 Atorvastatin Calcium 10 Mg Tablet, 10 MG PO HS Prescribed by: MELODIE DELONG on 07/18/18 0809 Levothyroxine Sodium 75 Mcg Tablet, 75 MCG PO DAILY, (Reported) Lisinopril 20 Mg Tablet, 20 MG PO DAILY, (Reported) Ticagrelor 90 Mg Tablet, 90 MG PO BID Prescribed by: MELODIE DELONG on 07/18/18 0809 Patient Home Medication List Home Medication List Reviewed: Yes Review of Systems Review of Systems Constitutional: No chills, No diaphoresis EENTM: No Blurred Vision, No Double Vision Respiratory: Denies Cough, Denies Shortness of Air Cardiovascular: See HPI, Chest Pain; Denies Edema, Denies Irregular Heart Rate, Denies Lightheadedness, Denies Palpitations, Denies Syncope Gastrointestinal: Denies Abdomen Distended, Denies Abdominal Pain, Denies Difficulty Swallowing, Denies Nausea Genitourinary: Denies Burning, Denies Discharge Musculoskeletal: see HPI, back pain; No joint pain Past Udgdpwx-Qwwyai-Rfcdyc Hx Patient Social History Alcohol Use: Denies Use Recreational Drug Use: Yes Drug of Choice: MARIJUANA Smoking Status: Current Everyday Smoker Type Used: Cigarettes (1 ppd) 2nd Hand Smoke Exposure: No Recent Foreign Travel: No Contact w/Someone Who Travel: No Recent Hopitalizations: No Immunizations Up To Date Tetanus Booster (TDap): Less than 5yrs Seasonal Allergies Seasonal Allergies: Yes Past Medical History Surgeries: Yes (ANAL FISTULA, COLONSCOPY, resection of vocal cord polyps) Section, Coronary Stent, Eye Surgery, Thyroidectomy, Tubal Ligation Respiratory: No Currently Using CPAP: No Currently Using BIPAP: No Cardiac: Yes Coronary Artery Disease, High Cholesterol, Hypertension Neurological: No Reproductive Disorders: No Female Reproductive Disorders: Denies Sexually Transmitted Disease: No HIV/AIDS: No Genitourinary: No Gastrointestinal: Yes Gastroesophageal Reflux, Hemorrhoids Musculoskeletal: Yes Chronic Back Pain Endocrine: Yes Hypothyroidsim HEENT: Yes Cataract Loss of Vision: Denies Hearing Impairment: Denies Cancer: No Psychosocial: Yes Anxiety Integumentary: No Blood Disorders: No Family Medical History Hypertension Physical Exam Vital Signs Vital Signs - First Documented 12/05/18 08:49 Temp 37.3 Pulse 82 Resp 20 B/P (MAP) 186/99 (128) Pulse Ox 97 O2 Delivery Room Air Capillary Refill : Height, Weight, BMI Height: 5'3.00" Weight: 218lbs. 0.0oz. 98.214069yt; 39.7 BMI Method:Stated General Appearance: WD/WN, Anxious, Mild Distress HEENT: PERRL/EOMI, Pharynx Normal, Moist Mucous Membranes Respiratory: Chest Non Tender, Lungs Clear, Normal Breath Sounds, No Accessory Muscle Use, No Respiratory Distress Cardiovascular: Regular Rate, Rhythm, No Edema, Normal Peripheral Pulses Gastrointestinal: Normal Bowel Sounds, Non Tender, Soft Extremity: Normal Capillary Refill, Normal Inspection, No Pedal Edema Neurologic/Psychiatric: Alert, Oriented x3 Skin: Normal Color, Warm/Dry Other comments Her back is tender at the thoracic level to direct palpation over the midline. Progress/Results/Core Measures Results/Orders Lab Results Laboratory Tests Test 12/05/18 09:00 Range/Units White Blood Count 8.1 4.3-11.0 10^3/uL Red Blood Count 4.54 4.35-5.85 10^6/uL Hemoglobin 14.7 11.5-16.0 G/DL Hematocrit 43 35-52 % Mean Corpuscular Volume 94 80-99 FL Mean Corpuscular Hemoglobin 32 25-34 PG Mean Corpuscular Hemoglobin Concent 34 32-36 G/DL Red Cell Distribution Width 13.1 10.0-14.5 % Platelet Count 268 130-400 10^3/uL Mean Platelet Volume 9.0 7.4-10.4 FL Neutrophils (%) (Auto) 63 42-75 % Lymphocytes (%) (Auto) 29 12-44 % Monocytes (%) (Auto) 6 0-12 % Eosinophils (%) (Auto) 2 0-10 % Basophils (%) (Auto) 1 0-10 % Neutrophils # (Auto) 5.1 1.8-7.8 X 10^3 Lymphocytes # (Auto) 2.3 1.0-4.0 X 10^3 Monocytes # (Auto) 0.5 0.0-1.0 X 10^3 Eosinophils # (Auto) 0.1 0.0-0.3 10^3/uL Basophils # (Auto) 0.1 0.0-0.1 10^3/uL Prothrombin Time 12.7 12.2-14.7 SEC INR Comment 0.9 0.8-1.4 Activated Partial Thromboplast Time 32 24-35 SEC Sodium Level 140 135-145 MMOL/L Potassium Level 3.6 3.6-5.0 MMOL/L Chloride Level 108 H 98-107 MMOL/L Carbon Dioxide Level 21 21-32 MMOL/L Anion Gap 11 5-14 MMOL/L Blood Urea Nitrogen 15 7-18 MG/DL Creatinine 0.83 0.60-1.30 MG/DL Estimat Glomerular Filtration Rate > 60 BUN/Creatinine Ratio 18 Glucose Level 138 H 70-105 MG/DL Calcium Level 9.3 8.5-10.1 MG/DL Corrected Calcium 9.0 8.5-10.1 MG/DL Magnesium Level 1.8 1.6-2.4 MG/DL Total Bilirubin 0.6 0.1-1.0 MG/DL Aspartate Amino Transf (AST/SGOT) 25 5-34 U/L Alanine Aminotransferase (ALT/SGPT) 24 0-55 U/L Alkaline Phosphatase 78 40-136 U/L Myoglobin 35.5 10.0-92.0 NG/ML Troponin I < 0.028 <0.028 NG/ML B-Type Natriuretic Peptide 13.8 <100.0 PG/ML Total Protein 7.5 6.4-8.2 GM/DL Albumin 4.4 3.2-4.5 GM/DL Lipase 35 8-78 U/L My Orders Orders - NOHELIACHIQUITA J Ekg Tracing (12/05/18 08:50) Continuous Ekg Monitoring (12/05/18 08:50) Cbc With Automated Diff (12/05/18:02) Magnesium (12/05/18:02) Chest 1 View, Ap/Pa Only (12/05/18:) Cardiac Profile 1 (12/05/18:) Comprehensive Metabolic Panel (12/05/18:) Myoglobin Serum (12/05/18:) Protime With Inr (12/05/18:) Partial Thromboplastin Time (12/05/18:) O2 (12/05/18:02) Lipid Panel (12/06/18 06:00) Ed Iv/Invasive Line Start (12/05/18:02) Lipase (12/05/18:02) BNP (12/05/18:) Nitroglycerin 0.4 Mg Btl 25's (Nitrostat (12/05/18 09:15) Aspirin Chewable Tablet (Baby Aspirin Ch (12/05/18 09:15) Ua Culture If Indicated (12/05/18 10:04) Medications Given in ED Current Medications Medications Dose Ordered Sig/Anju Route Start Time Stop Time Status Last Admin Dose Admin Aspirin 243 mg ONCE ONCE PO 12/05/18 09:15 12/05/18 09:16 DC 12/05/18 09:10 243 MG Nitroglycerin 0.4 mg UD PRN SL 12/05/18 09:15 12/05/18 09:10 0.4 MG Vital Signs/I&O 12/05/18 12/05/18 08:49 08:49 Temp 37.3 Pulse 82 Resp 20 B/P (MAP) 186/99 (128) Pulse Ox 97 O2 Delivery Room Air Progress Progress Note : Time: 09:29 Progress Note We gave her another 3 tablets of aspirin to chew and swallow. After a single dose of nitroglycerin her discomfort in her back and her chest went away. She's not having any epigastric or abdominal discomfort. She does have reproducible back pain at the level where she feels uncomfortable. Cardiac catheterization June [address] Delong: 90% stenosis of the mid right coronary artery status post stent. Mild disease in the left coronary system. Ejection fraction 60%. Echocardiogram by Dr. Delong June 2018: EF 55-65% with grade 1 diastolic dysfunction. No aortic root dilatation. Heart Score 5 points. High risk 1265% 30-day MACE Initial ECG Impression Date: Dec 05, 2018 Initial ECG Impression Time: 08:57 Initial ECG Rate: 77 Initial ECG Rhythm: Normal Sinus Initial ECG Intervals: Normal Initial ECG Impression: Normal Comment No ST elevation or depression. Diagnostic Imaging Diagonstic Imaging: Xray Plain Films/CT/US/NM/MRI: chest (1v) Comments [facility], [place] NAME: BRIGID WALLACE [facility] REC#: [id number] PT STATUS: REG ER : 1965 PHYSICIAN: CHIQUITA POZO MD ADMIT DATE: 12/05/18/ER Draft Date of Exam:12/05/18 CHEST 1 VIEW, AP/PA ONLY INDICATION: Chest pressure. Time of exam: 9:14 AM Correlation is made with prior chest from 07/17/2018. The heart size is normal. Lungs appear to be clear. Pulmonary vascularity is unremarkable. No infiltrates are seen. No effusion or pneumothorax is detected. IMPRESSION: No acute cardiopulmonary process is detected. Dictated on workstation # [id number] Dict: 12/05/18917 Trans: 12/05/18920 [facility] [id number] Interpreted by: TERE PATEL MD Electronically signed by: Reviewed: Reviewed by Me Consults : Consulting Physician: MELODIE DELONG MD Consults Notes Initially discussed the case and he agreed with an observation stay for rule out acute coronary syndrome. Patient has decided she does not want stay in the hospital for her own reasons and so after discussing the case with him she has a follow-up appointment scheduled Sunday is practitioner and he is okay with that. He would like us to rule her out in the ER with a two-hour troponin. Departure Impression Primary Impression: Chest pain Qualified Codes: R07.9 - Chest pain, unspecified Additional Impression: Acute coronary syndrome without high troponin Disposition: HOME, SELF-CARE Condition: Stable Departure-Patient Inst. Decision time for Depature: 11:50 Referrals: NO,LOCAL PHYSICIAN (PCP) Primary Care Physician MERCEDES TAYLOR (Family) Primary Care Physician MELODIE DELONG MD Patient Instructions: Chest Pain (DC) Add. Discharge Instructions: Take the nitroglycerin 1 tablet under the tongue every 5 minutes if you have repeat occurrence of your chest pressure/pain. If you have to use this 3 times in a row then you need to return to the ER. Otherwise keep your follow-up appointment on Sunday with the tank truck driver. Resume taking all of your other medications as prescribed. Work/School Note: Work Release Form Date Seen in the Emergency Department: Dec 05, 2018 Return to Work: Dec 06, 2018 Restrictions: No Restrictions CHIQUITA POZO Dec 05, 2018 09:07
[2018-12-05] MEDS ORDERED: NITROGLYCERIN 0.4 MG SL TABS BTL 25'S SL PRN (09:15)
[2018-12-05] MEDS ORDERED: ASPIRIN 81 MG CHEW (CHILDREN'S ASA) PO ONE (09:15)
--- NOTE | 2018-12-05 09:16 | NUR ---
PT PAIN FREE AT THIS X.
[2018-12-05 09:18] LABS: BASOPHILS # (AUTO) 0.1 10^3/uL (0.0-0.1); BASOPHILS % (AUTO) 1 % (0-10); EOSINOPHILS # (AUTO) 0.1 10^3/uL (0.0-0.3); EOSINOPHILS % (AUTO) 2 % (0-10); HEMATOCRIT 43 % (35-52); HEMOGLOBIN 14.7 G/DL (11.5-16.0); LYMPHOCYTES # (AUTO) 2.3 X 10^3 (1.0-4.0); LYMPHOCYTES % (AUTO) 29 % (12-44); MEAN CORPUSCULAR HEMOGLOBIN 32 PG (25-34); MEAN CORPUSCULAR HGB CONC 34 G/DL (32-36); MEAN CORPUSCULAR VOLUME 94 FL (80-99); MONOCYTES # (AUTO) 0.5 X 10^3 (0.0-1.0); MONOCYTES % (AUTO) 6 % (0-12); NEUTROPHILS # (AUTO) 5.1 X 10^3 (1.8-7.8); NEUTROPHILS % (AUTO) 63 % (42-75); PLATELET COUNT 268 10^3/uL (130-400); RED CELL DISTRIBUTION WIDTH 13.1 % (10.0-14.5); WHITE BLOOD COUNT 8.1 10^3/uL (4.3-11.0)
--- NOTE | 2018-12-05 09:21 | Diagnostic Imaging Report ---
INDICATION: Chest pressure. Time of exam: 9:14 AM Correlation is made with prior chest from 07/17/2018. The heart size is normal. Lungs appear to be clear. Pulmonary vascularity is unremarkable. No infiltrates are seen. No effusion or pneumothorax is detected. IMPRESSION: No acute cardiopulmonary process is detected. Dictated by: Dictated on workstation # [id number]
[2018-12-05 09:25] LABS: INR 0.9 (0.8-1.4); PROTHROMBIN TIME PATIENT 12.7 SEC (12.2-14.7)
[2018-12-05 09:36] LABS: ALANINE AMINOTRANSFERASE 24 U/L (0-55); ALBUMIN 4.4 GM/DL (3.2-4.5); ALKALINE PHOSPHATASE 78 U/L (40-136); BILIRUBIN,TOTAL 0.6 MG/DL (0.1-1.0); BUN/CREATININE RATIO 18; CALCIUM 9.3 MG/DL (8.5-10.1); CARBON DIOXIDE 21 MMOL/L (21-32); CHLORIDE 108 MMOL/L (98-107); CREATININE SERUM 0.83 MG/DL (0.60-1.30); GFR ESTIMATED > 60; GLUCOSE 138 MG/DL (70-105); LIPASE 35 U/L (8-78); MAGNESIUM 1.8 MG/DL (1.6-2.4); POTASSIUM 3.6 MMOL/L (3.6-5.0); SODIUM 140 MMOL/L (135-145); TOTAL PROTEIN 7.5 GM/DL (6.4-8.2)
[2018-12-05 10:18] LABS: BILIRUBIN,URINE NEGATIVE (NEGATIVE); CLARITY,URINE CLEAR; COLOR,URINE YELLOW; GLUCOSE, URINE (UA) NEGATIVE (NEGATIVE); KETONES,URINE NEGATIVE (NEGATIVE); LEUKOCYTE ESTERASE ,URINE NEGATIVE (NEGATIVE); NITRITE,URINE NEGATIVE (NEGATIVE); PH,URINE 5 (5-9); PROTEIN,URINE NEGATIVE (NEGATIVE); UROBILINOGEN,URINE NORMAL (NORMAL)
[2018-12-05 10:30] LABS: BACTERIA,URINE FEW /HPF; WBC,URINE RARE /HPF
[2018-12-05 12:05] VITALS: BP 142/88
== END 2018-12-05 12:05 | disposition home or self-care (01) ==
LOC: EDUNIT# 08:48 → ER 08:48 → UNDOADMOB 10:09 → CSD 10:09 → ER 12:05
DX: R07.9 Chest pain, unspecified (principal); I24.9 Acute ischemic heart disease, unspecified; K21.9 Gastro-esophageal reflux disease without esophagitis; I10 Essential (primary) hypertension; E78.5 Hyperlipidemia, unspecified; I25.10 Atherosclerotic heart disease of native coronary artery without angina pectoris; E78.00 Pure hypercholesterolemia, unspecified; E03.9 Hypothyroidism, unspecified; F41.9 Anxiety disorder, unspecified; F17.210 Nicotine dependence, cigarettes, uncomplicated; Z95.5 Presence of coronary angioplasty implant and graft; Z88.5 Allergy status to narcotic agent; Z88.8 Allergy status to other drugs, medicaments and biological substances; Z79.82 Long term (current) use of aspirin; Z88.1 Allergy status to other antibiotic agents; Z98.51 Tubal ligation status; Z82.49 Family history of ischemic heart disease and other diseases of the circulatory system
CPT/HCPCS: 36415; 71045; 80053; 81000; 83690; 83735; 83874; 83880; 84484; 85025; 85610; 85730; 93005

== ENCOUNTER → 2018-12-18 | Outpatient (CLI) | payer OTHER ==
[~2018-12-18] VITALS: Ht 160 cm; Wt 101.0 kg
[~2018-12-18] MED LIST changes: +CATHETER FLUSH 10 ML SYR IV PRN
[2018-12-18 09:07] VITALS: BP 158/91
[2018-12-18 09:16] VITALS: BP 146/91
--- NOTE | 2018-12-18 21:35 | STRESS TEST ---
DATE OF SERVICE: 12/18/2018 EXERCISE MYOVIEW STRESS TEST REFERRING PHYSICIAN: CHANELLE Rockwell Baseline heart rate is 66, baseline blood pressure 139/86. Baseline EKG is sinus rhythm with no ischemic changes. In summary, the patient was injected with 10.66 mCi of technetium-99 Myoview and the resting images were obtained. Then, the patient started exercising with a baseline heart rate, blood pressure and EKG mentioned above. The patient was able to exercise for 7 minutes on standard Inderjit protocol. With peak exercise level, EKG was showing nondiagnostic changes. Blood pressure was 202/102. During recovery, heart rate and blood pressure returned to baseline. EKG returned to baseline. The resting and stress images were reviewed and compared in the short axis, horizontal long axis, and vertical long axis views. Review of the images showed good radiotracer uptake with no significant ischemia or infarction. SSS is 2, SDS 2, TID value 1.02. On the gated images, the left ventricle appeared to be in normal size with normal contractility. Calculated ejection fraction is 60%. CONCLUSION: 1. Fair exercise tolerance, a total of 7 minutes on standard Inderjit protocol, total of 8.5 METs achieving 87% of maximum expected heart rate. 2. Appropriate heart rate with severe hypertensive response to exercise with peak blood pressure 213/95, returned to baseline during recovery. 3. Nondiagnostic EKG changes with exercise returned to baseline during recovery. 4. No significant ischemia or infarction on SPECT images. 5. Normal left ventricular size with normal contractility. Calculated ejection fraction is 60%. Job ID: [id number] DocumentID: [id number] Dictated Date: 12/18/2018 16:18:31 [employer] Date: 12/18/2018 21:35:16 Dictated By: MELODIE HOOD MD
== END ==
LOC: CARD 07:30
PROVIDERS: ATTEND Physician Assistant
DX: K21.9 Gastro-esophageal reflux disease without esophagitis (principal); I10 Essential (primary) hypertension; R07.1 Chest pain on breathing; F17.200 Nicotine dependence, unspecified, uncomplicated
CPT/HCPCS: 78452; 93017

== ENCOUNTER → 2019-10-15 | Outpatient (CLI) | payer SELFPAY ==
[~2019-10-15] MED LIST changes: -CATHETER FLUSH 10 ML SYR IV PRN; +REGADENOSON 0.4 MG/5 ML SYR (LEXISCAN) IV ONE
--- NOTE | 2019-10-16 12:25 | STRESS TEST ---
DATE OF SERVICE: 10/15/2019 LEXISCAN MYOVIEW STRESS TEST REPORT SUMMARY: The patient was injected with resting and stress dose of Myoview after receiving Lexiscan injection. Review of the images showed no ischemia, EKG showed occasional PVCs. TID value 1.0. SSS 2. SDS 2. EF 58%. Baseline EKG is sinus rhythm. CONCLUSION: 1. The patient tolerated Lexiscan well. 2. No significant ischemia or infarction on SPECT images. 3. Normal left ventricular size and systolic function, EF 58%. 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
== END ==
LOC: CARD 07:30
PROVIDERS: ATTEND Internal Medicine Cardiovascular Disease
DX: I25.111 Atherosclerotic heart disease of native coronary artery with angina pectoris with documented spasm (principal); I10 Essential (primary) hypertension; E66.9 Obesity, unspecified
CPT/HCPCS: 78452; 93017; A9502

== ENCOUNTER 2020-05-11 08:58 | Emergency (ER) | payer OTHER ==
[~2020-05-11] VITALS: Ht 160 cm; Wt 98.0 kg
[~2020-05-11 08:58] MED LIST changes: +AMLO-250 PO; -AMLO5TAB9 PO; +ASPI-1238 PO; -ASPI-983 PO; -LISI-552 PO; +LISI20TA26 PO; -REGADENOSON 0.4 MG/5 ML SYR (LEXISCAN) IV ONE
--- NOTE | 2020-05-11 09:29 | ED General ---
General Chief Complaint: Cardiac/General Problems Stated Complaint: BP ISSUES Nursing Triage Note: ARRIVED VIA AMB TO ROOM 05. STATES DR DECREASED HER LISINOPRIL TO 1/2 TAB THEN RECENTLY CHANGED IT TO NONE. TODAY FEELS VERY DIZZY AND IS HAVING PAIN IN UPPER LEGS AND BUTTOCKS AND STATES HER BP IS LOW. TEARFUL. Nursing Sepsis Screen: No Definite Risk Source of Information: Patient Exam Limitations: No Limitations History of Present Illness Date Seen by Provider: May 11, 2020 Time Seen by Provider: 09:15 Initial Comments Patient is a 54-year-old female who presents to the emergency department today with a chief complaint of generalized weakness, "dizziness" and reportedly some low blood pressure over the course of the last several days. Patient states her symptoms started this morning while she was driving and she states she did not "want a pass out" while she was driving. Patient cannot really qualify the dizziness but states that she just did not feel "right". Patient states that she has felt under the weather and just a little bit "odd" over the last few days. 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 Patient reports these were normal. Patient states when she was in her doctor's office her blood pressure was low in the 90s over 60s. She was advised to cut her lisinopril in half and then yesterday when she talked to Dr. Jones he told her to discontinue taking it. At triage her systolic blood pressure was 188. Since her arrival to the emergency department her systolic is dropped into the 140s. Patient states the lisinopril was the only medication that she took for blood pressure. She is no longer on amlod ipine. Patient also complains of some vague nonspecific buttock and leg pain. She also complains of some intermittent chest "pressure" not precipitated by activity or any other factors. Last episode of chest pain was about a week ago. The leg pain is not really precipitated by activity or rest. She states the legs almost feel "restless". She denies any recent illnesses such as fevers, chills, cough congestion. No GI or complaints. All other review of systems reviewed and negative except as stated above Timing/Duration: 1-3 Hours Severity: Mild Associated Systoms: Denies Symptoms Allergies and Home Medications Allergies Coded Allergies: codeine (Unverified Allergy, Mild, SWELLING, 10/03/08) hydrocodone (Unverified Adverse Reaction, Intermediate, hives, 04/26/12) Uncoded Allergies: SEV. ANGLE INHIBITORS (Allergy, Mild, SWELLING, 10/03/08) SEVERAL ANTIBIOTIC (Allergy, Mild, VOMITING, 10/03/08) Home Medications Albuterol Sulfate 2.5 Mg/3 Ml Vial.neb, 2.5 MG INH PRN PRN for SHORTNESS OF BREATH, (Reported) Alprazolam 0.5 Mg Tablet, 0.5 MG PO PRN PRN for ANXIETY, (Reported) Amlodipine Besylate 5 Mg Tablet, 5 MG PO DAILY, (Reported) Aspirin 81 Mg Tablet.dr, 81 MG PO DAILY Prescribed by: MELODIE DELONG on 07/18/18808 Atorvastatin Calcium 10 Mg Tablet, 10 MG PO HS Prescribed by: MELODIE DELONG on 07/18/18808 Levothyroxine Sodium 75 Mcg Tablet, 75 MCG PO DAILY, (Reported) Lisinopril 20 Mg Tablet, 20 MG PO DAILY, (Reported) Ticagrelor 90 Mg Tablet, 90 MG PO BID Prescribed by: MELODIE DELONG on 07/18/18808 Patient Home Medication List Home Medication List Reviewed: Yes Review of Systems Review of Systems Constitutional: see HPI, dizziness, malaise, weakness EENTM: no symptoms reported Respiratory: no symptoms reported Cardiovascular: chest pain Gastrointestinal: no symptoms reported Genitourinary: no symptoms reported : No Musculoskeletal: muscle cramps Skin: no symptoms reported Psychiatric/Neurological: Anxiety All Other Systems Reviewed Negative Unless Noted: Yes Past Trbdgze-Vajnuj-Regudb Hx Patient Social History Alcohol Use: Denies Use Drug of Choice: MARIJUANA Smoking Status: Current Everyday Smoker Type Used: Cigarettes 2nd Hand Smoke Exposure: No Recent Infectious Disease Expo: No Recent Hopitalizations: No Immunizations Up To Date Tetanus Booster (TDap): Less than 5yrs Seasonal Allergies Seasonal Allergies: Yes Past Medical History Surgeries: Yes (ANAL FISTULA, COLONSCOPY, resection of vocal cord polyps) Section, Coronary Stent, Eye Surgery, Thyroidectomy, Tubal Ligation Respiratory: No COPD Currently Using CPAP: No Currently Using BIPAP: No Cardiac: Yes Coronary Artery Disease, High Cholesterol, Hypertension Neurological: No Reproductive Disorders: No 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 Sexually Transmitted Disease: No HIV/AIDS: No Genitourinary: No Gastrointestinal: Yes Gastroesophageal Reflux, Hemorrhoids Musculoskeletal: Yes Chronic Back Pain Endocrine: Yes Hypothyroidsim HEENT: Yes Cataract Loss of Vision: Denies Hearing Impairment: Denies Cancer: No Psychosocial: Yes Anxiety Integumentary: No Blood Disorders: No Family Medical History Hypertension Physical Exam Vital Signs Vital Signs - First Documented 05/11/20 09:01 Temp 36.3 Pulse 74 Resp 16 B/P (MAP) 188/101 (130) Pulse Ox 96 O2 Delivery Room Air Capillary Refill : Less Than 3 Seconds Height, Weight, BMI Height: 5'3.00" Weight: 218lbs. 0.0oz. 98.805678vc; 38.00 BMI Method:Stated General Appearance: WD/WN, Anxious (tearful) Eyes: Bilateral Eye Normal Inspection, Bilateral Eye PERRL, Bilateral Eye EOMI Neck: Normal Inspection, Non Tender, Supple Respiratory: Lungs Clear, Normal Breath Sounds, No Accessory Muscle Use, No Respiratory Distress Cardiovascular: Regular Rate, Rhythm, No Murmur, Normal Peripheral Pulses Gastrointestinal: Normal Bowel Sounds, Non Tender, Soft Extremity: Normal Inspection, No Calf Tenderness Neurologic/Psychiatric: Alert, Oriented x3, No Motor/Sensory Deficits, Depr essed Affect (tearful) Skin: Normal Color, Warm/Dry Progress/Results/Core Measures Suspected Sepsis Recent Fever Within 48 Hours: No Infection Criteria Present: None New/Unexplained Altered Menta: No Sepsis Screen: No Definite Risk SIRS Temperature: Pulse: 74 Respiratory Rate: 16 Laboratory Tests 05/11/20 09:20: White Blood Count 7.0 Blood Pressure 188 /101 Mean: 130 Laboratory Tests 05/11/20 09:20: Creatinine 0.87, Platelet Count 251 Results/Orders Lab Results Laboratory Tests Test 05/11/20 09:20 05/11/20 09:57 Range/Units White Blood Count 7.0 4.3-11.0 10^3/uL Red Blood Count 4.67 3.80-5.11 10^6/uL Hemoglobin 14.8 11.5-16.0 g/dL Hematocrit 43 35-52 % Mean Corpuscular Volume 93 80-99 fL Mean Corpuscular Hemoglobin 32 25-34 pg Mean Corpuscular Hemoglobin Concent 34 32-36 g/dL Red Cell Distribution Width 12.2 10.0-14.5 % Platelet Count 251 130-400 10^3/uL Mean Platelet Volume 9.2 9.0-12.2 fL Immature Granulocyte % (Auto) 0 % Neutrophils (%) (Auto) 53 42-75 % Lymphocytes (%) (Auto) 37 12-44 % Monocytes (%) (Auto) 7 0-12 % Eosinophils (%) (Auto) 2 0-10 % Basophils (%) (Auto) 1 0-10 % Neutrophils # (Auto) 3.7 1.8-7.8 10^3/uL Lymphocytes # (Auto) 2.6 1.0-4.0 10^3/uL Monocytes # (Auto) 0.5 0.0-1.0 10^3/uL Eosinophils # (Auto) 0.2 0.0-0.3 10^3/uL Basophils # (Auto) 0.1 0.0-0.1 10^3/uL Immature Granulocyte # (Auto) 0.0 0.0-0.1 10^3/uL Sodium Level 142 135-145 MMOL/L Potassium Level 3.7 3.6-5.0 MMOL/L Chloride Level 107 98-107 MMOL/L Carbon Dioxide Level 23 21-32 MMOL/L Anion Gap 12 5-14 MMOL/L Blood Urea Nitrogen 13 7-18 MG/DL Creatinine 0.87 0.60-1.30 MG/DL Estimat Glomerular Filtration Rate > 60 BUN/Creatinine Ratio 15 Glucose Level 120 H 70-105 MG/DL Calcium Level 9.4 8.5-10.1 MG/DL Total Creatine Kinase 176 H 29-168 U/L Creatine Kinase MB 1.6 <6.6 NG/ML Troponin I < 0.028 <0.028 NG/ML Urine Test NEGATIVE NEGATIVE My Orders Orders - GHULAM CAMEJO MD Cbc With Automated Diff (05/11/20 09:41) Basic Metabolic Panel (05/11/20 09:41) Creatine Kinase (05/11/20 09:41) Creatine Kinase Mb (05/11/20 09:41) Troponin I (05/11/20 09:41) Hcg,Qualitative Urine (05/11/20 09:41) Chest 1 View, Ap/Pa Only (05/11/20 09:41) Ekg Tracing (05/11/20 09:41) Vital Signs/I&O 3/16/21 09:01 Temp 36.3 Pulse 74 Resp 16 B/P (MAP) 188/101 (130) Pulse Ox 96 O2 Delivery Room Air Capillary Refill : Less Than 3 Seconds Blood Pressure Mean: 130 Progress Note : Time: 10:38 Progress Note Patient seen and evaluated, physical exam, CBC chemistry urine test cardiac enzyme profile and chest x-ray and EKG were all performed. Patient is noted to have a very minimal increase in her total CK. Patient is on generic Lipitor. She has been complaining of these myalgias and muscle aches in her posterior thighs and buttocks. I recommended that she follow-up closely with her primary care physician as she may be having an adverse reaction to the Lipitor. Patient has not had chest pain this week, cardiac enzymes and chest x- ray are reassuring. Patient's "dizziness" and feelings of unease may be related to anxiety/panic. Have reassured her that all of her work-up is unremarkable to this point. I recommended close follow-up with Dr. Jones, the patient is monitoring her blood pressure and will contact him within the week in order to be placed back on antihypertensive medication. She has no clinical or objective findings at this time to warrant further studies or admission from the ED. All questions are sought and answered. Patient is comfortable with discharge at this time. ECG Initial ECG Impression Date: May 11, 2020 Initial ECG Impression Time: 09:11 Initial ECG Rate: 73 Initial ECG Rhythm: Normal Sinus Initial ECG Intervals: Normal Initial ECG Impression: Normal Diagnostic Imaging Diagonstic Imaging: Xray Plain Films/CT/US/NM/MRI: chest Comments [facility], [facility]. [employer], [place] NAME: BRIGID WALLACE [facility] REC#: [id number] PT STATUS: REG ER : 1965 PHYSICIAN: GHULAM CAMEJO MD ADMIT DATE: 05/11/20/ER Draft Date of Exam:05/11/20 CHEST 1 VIEW, AP/PA ONLY EXAMINATION: Portable erect AP chest at 9:47 AM. INDICATION: Chest pain. FINDINGS: The heart size is within normal limits and stable when compared to 12/05/2018. The lungs remain generally clear. There is no sign of failure, pneumonia, or pleural effusion to indicate an acute abnormality. The mediastinum is not widened. The osseous structures are intact. IMPRESSION: There is no evidence for active disease. Dictated on workstation # [id number] Dict: 05/11/20 1009 Trans: 05/11/20 1011 [id number] Interpreted by: REYNALDO RIVERA MD Electronically signed by: Departure Impression Primary Impression: Anxiety Additional Impression: Myalgia Disposition: HOME, SELF-CARE Condition: Stable Departure-Patient Inst. Decision time for Depature: 10:40 Referrals: NO,LOCAL PHYSICIAN (PCP) Primary Care Physician MERCEDES TAYLOR (Family) Primary Care Physician MELODIE DELONG MD Patient Instructions: Anxiety, Adult (DC), Muscle and Bone Pain (DC) Add. Discharge Instructions: Drink plenty of fluids to stay well-hydrated. Call your primary care provider about the muscle aches and pains you have been having which are probably related to the Lipitor that you take. Continue your daily baby aspirin. Close follow-up with Dr. Delong regarding your blood pressure medications. Return to the emergency department if you have any return of chest pain especially associated with dizziness, shortness of breath, sweating or nausea. Copy Copies To 1: MELODIE DELONG MD, KATHRYN M MD May 11, 2020 09:29
[2020-05-11 09:48] LABS: BASOPHILS # (AUTO) 0.1 10^3/uL (0.0-0.1); BASOPHILS % (AUTO) 1 % (0-10); EOSINOPHILS # (AUTO) 0.2 10^3/uL (0.0-0.3); EOSINOPHILS % (AUTO) 2 % (0-10); HEMATOCRIT 43 % (35-52); HEMOGLOBIN 14.8 g/dL (11.5-16.0); LYMPHOCYTES # (AUTO) 2.6 10^3/uL (1.0-4.0); LYMPHOCYTES % (AUTO) 37 % (12-44); MEAN CORPUSCULAR HEMOGLOBIN 32 pg (25-34); MEAN CORPUSCULAR HGB CONC 34 g/dL (32-36); MEAN CORPUSCULAR VOLUME 93 fL (80-99); MEAN PLATELET VOLUME 9.2 fL (9.0-12.2); MONOCYTES # (AUTO) 0.5 10^3/uL (0.0-1.0); MONOCYTES % (AUTO) 7 % (0-12); NEUTROPHILS # (AUTO) 3.7 10^3/uL (1.8-7.8); NEUTROPHILS % (AUTO) 53 % (42-75); PLATELET COUNT 251 10^3/uL (130-400)
[2020-05-11 09:59] LABS: BUN/CREATININE RATIO 15; CALCIUM 9.4 MG/DL (8.5-10.1); CARBON DIOXIDE 23 MMOL/L (21-32); CHLORIDE 107 MMOL/L (98-107); CREATINE KINASE 176 U/L (29-168); CREATININE SERUM 0.87 MG/DL (0.60-1.30); GFR ESTIMATED > 60; GLUCOSE 120 MG/DL (70-105); POTASSIUM 3.7 MMOL/L (3.6-5.0); SODIUM 142 MMOL/L (135-145)
[2020-05-11 10:05] LABS: CREATINE KINASE MB 1.6 NG/ML (<6.6)
--- NOTE | 2020-05-11 10:11 | Diagnostic Imaging Report ---
EXAMINATION: Portable erect AP chest at 9:47 AM. INDICATION: Chest pain. FINDINGS: The heart size is within normal limits and stable when compared to 12/05/2018. The lungs remain generally clear. There is no sign of failure, pneumonia, or pleural effusion to indicate an acute abnormality. The mediastinum is not widened. The osseous structures are intact. IMPRESSION: There is no evidence for active disease. Dictated by: Dictated on workstation # [id number]
[2020-05-11 10:50] VITALS: BP 136/69
== END 2020-05-11 10:47 | disposition home or self-care (01) ==
LOC: EDUNIT# 08:58 → ER 09:00
DX: F41.9 Anxiety disorder, unspecified (principal); M79.10 Myalgia, unspecified site; I10 Essential (primary) hypertension; F32.9 Major depressive disorder, single episode, unspecified; J44.9 Chronic obstructive pulmonary disease, unspecified; E78.00 Pure hypercholesterolemia, unspecified; I25.10 Atherosclerotic heart disease of native coronary artery without angina pectoris; E03.9 Hypothyroidism, unspecified; F17.210 Nicotine dependence, cigarettes, uncomplicated; Z95.5 Presence of coronary angioplasty implant and graft; Z88.5 Allergy status to narcotic agent; Z88.8 Allergy status to other drugs, medicaments and biological substances; Z79.82 Long term (current) use of aspirin; Z79.890 Hormone replacement therapy
CPT/HCPCS: 36415; 71045; 80048; 82550; 82553; 84484; 84703; 85025; 93005

== ENCOUNTER → 2020-05-14 | Outpatient (CLI) | payer OTHER | LOC: RAD 09:56 | PROVIDERS: ATTEND Internal Medicine Endocrinology, Diabetes & Metabolism | DX: E03.8 Other specified hypothyroidism (principal) ==

== ENCOUNTER 2020-11-05 10:10 | Emergency (ER) | payer OTHER ==
[~2020-11-05] VITALS: Ht 160 cm; Wt 96.4 kg
[2020-11-05 10:37] VITALS: BP 167/105
[2020-11-05 11:08] LABS: BILIRUBIN,URINE NEGATIVE (NEGATIVE); CLARITY,URINE CLEAR; COLOR,URINE YELLOW; GLUCOSE, URINE (UA) NEGATIVE (NEGATIVE); KETONES,URINE NEGATIVE (NEGATIVE); LEUKOCYTE ESTERASE ,URINE NEGATIVE (NEGATIVE); NITRITE,URINE NEGATIVE (NEGATIVE); PROTEIN,URINE NEGATIVE (NEGATIVE)
[2020-11-05 11:28] LABS: RBC,URINE RARE /HPF; WBC,URINE 0-2 /HPF
[2020-11-05 11:29] LABS: BACTERIA,URINE MODERATE /HPF
--- NOTE | 2020-11-05 11:36 | ED Abdominal Pain ---
General Chief Complaint: Abdominal/GI Problems Stated Complaint: L SIDED PAIN Nursing Triage Note: left lower abd pain starting sunday at 1500. pain was worse yesterday, but persisting today. denies n/v/d. decreased urination Source of Information: Patient Exam Limitations: No Limitations History of Present Illness Date Seen by Provider: Nov 05, 2020 Time Seen by Provider: 11:33 Initial Comments To ER with left lower quadrant sharp abdominal pain for 2 to 3 days no fever no chills no nausea no vomiting no bowel changes Timing/Duration: 1-2 Days Severity/Quality: Moderate Location: LLQ Radiation: No Radiation Activities at Onset: None Associated Symptoms: Denies Symptoms Allergies and Home Medications Allergies Coded Allergies: codeine (Unverified Allergy, Mild, SWELLING, 10/03/08) hydrocodone (Unverified Adverse Reaction, Intermediate, hives, 04/26/12) Uncoded Allergies: SEV. ANGLE INHIBITORS (Allergy, Mild, SWELLING, 10/03/08) SEVERAL ANTIBIOTIC (Allergy, Mild, VOMITING, 10/03/08) Patient Home Medication List Home Medication List Reviewed: Yes Albuterol Sulfate (Albuterol Sulfate) 2.5 Mg/3 Ml Vial.neb, 2.5 MG INH PRN PRN for SHORTNESS OF BREATH, (Reported) Entered as Reported by: TRISH LEBRON on 07/17/18727 Alprazolam (Xanax) 0.5 Mg Tablet, 0.5 MG PO PRN PRN for ANXIETY, (Reported) Entered as Reported by: TRISH LEBRON on 07/17/18727 Aspirin (Aspirin EC) 81 Mg Tablet.dr, 81 MG PO DAILY Prescribed by: MELODIE HOOD on 07/18/18808 Atorvastatin Calcium (Atorvastatin Calcium) 10 Mg Tablet, 10 MG PO HS Prescribed by: MELODIE HOOD on 07/18/18808 Levothyroxine Sodium (Levothyroxine Sodium) 75 Mcg Tablet, 75 MCG PO DAILY, (Reported) Entered as Reported by: TRISH LEBRON on 07/17/18727 Discontinued Medications Amlodipine Besylate (Amlodipine Besylate) 5 Mg Tablet, 5 MG PO DAILY, (Reported) Discontinued Reason: No Longer Taking Entered as Reported by: TRISH LEBRON on 07/17/18727 Last Action: Discontinued Lisinopril (Lisinopril) 20 Mg Tablet, 20 MG PO DAILY, (Reported) Discontinued Reason: No Longer Taking Entered as Reported by: TRISH LEBRON on 07/17/18 0728 Last Action: Discontinued Ticagrelor (Brilinta) 90 Mg Tablet, 90 MG PO BID Discontinued Reason: No Longer Taking Prescribed by: MELODIE HOOD on 07/18/18 0809 Last Action: Discontinued Review of Systems Review of Systems Constitutional: see HPI EENTM: No Symptoms Reported Respiratory: No Symptoms Reported Cardiovascular: No Symptoms Reported Gastrointestinal: See HPI, Abdominal Pain Genitourinary: No Symptoms Reported Musculoskeletal: no symptoms reported Skin: no symptoms reported Psychiatric/Neurological: No Symptoms Reported Endocrine: No Symptoms Reported Hematologic/Lymphatic: No Symptoms Reported Past Happxme-Vfsilh-Muxtai Hx Immunizations Up To Date Tetanus Booster (TDap): Less than 5yrs Seasonal Allergies Seasonal Allergies: Yes Past Medical History Surgeries: Yes (ANAL FISTULA, COLONSCOPY, resection of vocal cord polyps) Section, Coronary Stent, Eye Surgery, Thyroidectomy, Tubal Ligation Respiratory: No COPD Currently Using CPAP: No Currently Using BIPAP: No Cardiac: Yes Coronary Artery Disease, High Cholesterol, Hypertension Neurological: No Reproductive Disorders: No 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 Sexually Transmitted Disease: No HIV/AIDS: No Genitourinary: No Gastrointestinal: Yes Gastroesophageal Reflux, Hemorrhoids Musculoskeletal: Yes Chronic Back Pain Endocrine: Yes Hypothyroidsim HEENT: Yes Cataract Loss of Vision: Denies Hearing Impairment: Denies Cancer: No Psychosocial: Yes Anxiety Integumentary: No Blood Disorders: No Family Medical History Hypertension Physical Exam Vital Signs Vital Signs - First Documented 11/05/20 10:37 Temp 36.8 Pulse 59 Resp 18 B/P (MAP) 167/105 (125) Pulse Ox 96 O2 Delivery Room Air Capillary Refill : Less Than 3 Seconds Height/Weight/BMI Height: 5'3.00" Weight: 218lbs. 0.0oz. 98.755276cd; 37.00 BMI Method:Stated General Appearance: WD/WN, no apparent distress HEENT: PERRL/EOMI, normal ENT inspection Respiratory: normal breath sounds, no respiratory distress, no accessory muscle use Gastrointestinal: normal bowel sounds, non tender, soft Extremities: normal range of motion, non-tender Neurologic/Psychiatric: alert, normal mood/affect, oriented x 3 Skin: normal color, warm/dry Progress/Results/Core Measures Results/Orders Lab Results Laboratory Tests Test 11/05/20 10:47 11/05/20 11:30 Range/Units Urine Color YELLOW Urine Clarity CLEAR Urine pH 6.0 5-9 Urine Specific [place] 1.020 1.016-1.022 Urine Protein NEGATIVE NEGATIVE Urine Glucose (UA) NEGATIVE NEGATIVE Urine Ketones NEGATIVE NEGATIVE Urine Nitrite NEGATIVE NEGATIVE Urine Bilirubin NEGATIVE NEGATIVE Urine Urobilinogen 0.2 < = 1.0 MG/DL Urine Leukocyte Esterase NEGATIVE NEGATIVE Urine RBC (Auto) TRACE-I NEGATIVE Urine RBC RARE /HPF Urine WBC 0-2 /HPF Urine Squamous Epithelial Cells 10-25 H /HPF Urine Crystals NONE /LPF Urine Bacteria MODERATE H /HPF Urine Casts NONE /LPF Urine Mucus NEGATIVE /LPF Urine Culture Indicated YES White Blood Count 7.9 4.3-11.0 10^3/uL Red Blood Count 4.63 3.80-5.11 10^6/uL Hemoglobin 14.8 11.5-16.0 g/dL Hematocrit 44 35-52 % Mean Corpuscular Volume 95 80-99 fL Mean Corpuscular Hemoglobin 32 25-34 pg Mean Corpuscular Hemoglobin Concent 34 32-36 g/dL Red Cell Distribution Width 12.6 10.0-14.5 % Platelet Count 255 130-400 10^3/uL Mean Platelet Volume 8.9 L 9.0-12.2 fL Immature Granulocyte % (Auto) 0 % Neutrophils (%) (Auto) 51 42-75 % Lymphocytes (%) (Auto) 39 12-44 % Monocytes (%) (Auto) 7 0-12 % Eosinophils (%) (Auto) 2 0-10 % Basophils (%) (Auto) 1 0-10 % Neutrophils # (Auto) 4.0 1.8-7.8 10^3/uL Lymphocytes # (Auto) 3.0 1.0-4.0 10^3/uL Monocytes # (Auto) 0.6 0.0-1.0 10^3/uL Eosinophils # (Auto) 0.1 0.0-0.3 10^3/uL Basophils # (Auto) 0.1 0.0-0.1 10^3/uL Immature Granulocyte # (Auto) 0.0 0.0-0.1 10^3/uL Sodium Level 141 135-145 MMOL/L Potassium Level 3.7 3.6-5.0 MMOL/L Chloride Level 105 98-107 MMOL/L Carbon Dioxide Level 28 21-32 MMOL/L Anion Gap 8 5-14 MMOL/L Blood Urea Nitrogen 13 7-18 MG/DL Creatinine 0.87 0.60-1.30 MG/DL Estimat Glomerular Filtration Rate 68 BUN/Creatinine Ratio 15 Glucose Level 95 70-105 MG/DL Calcium Level 9.8 8.5-10.1 MG/DL Corrected Calcium 9.6 8.5-10.1 MG/DL Total Bilirubin 0.7 0.1-1.0 MG/DL Aspartate Amino Transf (AST/SGOT) 22 5-34 U/L Alanine Aminotransferase (ALT/SGPT) 22 0-55 U/L Alkaline Phosphatase 84 40-136 U/L Total Protein 7.6 6.4-8.2 GM/DL Albumin 4.3 3.2-4.5 GM/DL My Orders Orders - TANO LAN APRN Ua Culture If Indicated (11/05/20 11:01) Cbc With Automated Diff (11/05/20 11:01) Comprehensive Metabolic Panel (11/05/20 11:01) Ed Iv/Invasive Line Start (11/05/20 11:01) Urine Culture (11/05/20 10:47) Ct Abd/Pelvis Wo(Kidney Stone) (11/05/20 11:32) Vital Signs/I&O 11/05/20 10:37 Temp 36.8 Pulse 59 Resp 18 B/P (MAP) 167/105 (125) Pulse Ox 96 O2 Delivery Room Air Blood Pressure Mean: 125 Departure Impression Primary Impression: Nonspecific abdominal pain Disposition: HOME, SELF-CARE Condition: Stable Departure-Patient Inst. Decision time for Depature: 12:38 Referrals: NO,LOCAL PHYSICIAN (PCP) Primary Care Physician MERCEDES TAYLOR (Family) Primary Care Physician Patient Instructions: No Instuctions Given Add. Discharge Instructions: The cause of your abdominal pain is not clear. There is no abnormality seen on CT. Return to ER for any worsening. All discharge instructions reviewed with patient and/or family. Voiced understanding. Scripts Cyclobenzaprine HCl (Cyclobenzaprine HCl) 10 Mg Tablet 10 MG PO TID PRN for PAIN-MODERATE (5-7), #10 TAB Prov: TANO LAN APRN 11/05/20 Work/School Note: Work Release Form Date Seen in the Emergency Department: Nov 05, 2020 Return to Work: Nov 06, 2020 TANO LAN APRN Nov 05, 2020 11:36
[2020-11-05 11:40] LABS: BASOPHILS # (AUTO) 0.1 10^3/uL (0.0-0.1); BASOPHILS % (AUTO) 1 % (0-10); EOSINOPHILS # (AUTO) 0.1 10^3/uL (0.0-0.3); EOSINOPHILS % (AUTO) 2 % (0-10); HEMATOCRIT 44 % (35-52); HEMOGLOBIN 14.8 g/dL (11.5-16.0); LYMPHOCYTES % (AUTO) 39 % (12-44); MEAN CORPUSCULAR HEMOGLOBIN 32 pg (25-34); MEAN CORPUSCULAR HGB CONC 34 g/dL (32-36); MEAN CORPUSCULAR VOLUME 95 fL (80-99); MEAN PLATELET VOLUME 8.9 fL (9.0-12.2); MONOCYTES # (AUTO) 0.6 10^3/uL (0.0-1.0); MONOCYTES % (AUTO) 7 % (0-12); NEUTROPHILS % (AUTO) 51 % (42-75); PLATELET COUNT 255 10^3/uL (130-400); WHITE BLOOD COUNT 7.9 10^3/uL (4.3-11.0)
[2020-11-05 11:46] LABS: ALBUMIN 4.3 GM/DL (3.2-4.5)
[2020-11-05 11:47] LABS: POTASSIUM 3.7 MMOL/L (3.6-5.0)
[2020-11-05 11:48] LABS: CALCIUM 9.8 MG/DL (8.5-10.1)
[2020-11-05 11:49] LABS: TOTAL PROTEIN 7.6 GM/DL (6.4-8.2)
[2020-11-05 11:51] LABS: BILIRUBIN,TOTAL 0.7 MG/DL (0.1-1.0)
[2020-11-05 11:53] LABS: CREATININE SERUM 0.87 MG/DL (0.60-1.30)
--- NOTE | 2020-11-05 12:35 | Diagnostic Imaging Report ---
PROCEDURE: CT urinary tract, rule out kidney stone. TECHNIQUE: Multiple contiguous axial images were obtained through the abdomen and pelvis without the use of intravenous contrast. Auto Exposure Controls were utilized during the CT exam to meet ALARA standards for radiation dose reduction. INDICATION: Left flank pain. Comparison is made with prior CT from 08/09/2009. The lung bases are clear. The liver is unremarkable. Gallbladder is surgically absent. There is no biliary ductal dilatation. Pancreas and spleen are unremarkable. No adrenal mass is detected. No definite renal calculi or hydronephrosis is identified. No ureteral or bladder calculi are detected. Aorta is heavily calcified but nonaneurysmal. The bowel loops are normal caliber. There is no obstruction. No inflammatory process is detected. There is no free fluid or fluid collection. The appendix is unremarkable. Uterus is unremarkable. Bony structures are nonacute. IMPRESSION: Unremarkable noncontrast CT of the abdomen and pelvis. No definite urinary tract calculi or obstruction is detected. Dictated by: Dictated on workstation # [id number]
[2020-11-05] MEDS ORDERED: CYCL10TA9 PO (12:47)
== END 2020-11-05 13:02 | disposition home or self-care (01) ==
LOC: EDUNIT# 10:10 → ER 10:12
DX: R10.32 Left lower quadrant pain (principal); J44.9 Chronic obstructive pulmonary disease, unspecified; I10 Essential (primary) hypertension; E78.00 Pure hypercholesterolemia, unspecified; E03.9 Hypothyroidism, unspecified; F41.9 Anxiety disorder, unspecified; I25.10 Atherosclerotic heart disease of native coronary artery without angina pectoris; Z79.899 Other long term (current) drug therapy; Z79.82 Long term (current) use of aspirin; Z79.890 Hormone replacement therapy
CPT/HCPCS: 36415; 74176; 80053; 81000; 85025; 87088

== ENCOUNTER → 2020-11-23 | Outpatient (CLI) | payer OTHER ==
[~2020-11-23] MED LIST changes: +CYCL10TA9 PO
== END ==
LOC: CARD 10:00
PROVIDERS: ATTEND Internal Medicine Cardiovascular Disease
DX: I11.9 Hypertensive heart disease without heart failure (principal)
CPT/HCPCS: 93306

== ENCOUNTER → 2021-01-03 | Outpatient (CLI) | payer OTHER ==
[~2021-01-03] VITALS: Ht 160 cm; Wt 96.0 kg
[~2021-01-03] MED LIST changes: +CATHETER FLUSH 10 ML SYR IV PRN; +REGADENOSON 0.4 MG/5 ML SYR (LEXISCAN) IV ONE
[2021-01-03 09:05] VITALS: BP 191/99
--- NOTE | 2021-01-03 11:07 | Cardiology Stress Test Report ---
Stress Test Report Date of Procedure/Referring: Date of Procedure: Jan 03, 2021 PCP Melodie Delong MD Admitting Physician No,Local Physician Indications: CAD Baseline Heart Rate: 54 Baseline Blood Pressure: Blood Pressure Systolic: 191 Blood Pressure Diastolic: 99 Baseline Vitals Vital Signs Date Time Temp Pulse Resp B/P (MAP) Pulse Ox O2 Delivery O2 Flow Rate FiO2 01/03/21 09:05 54 18 191/99 (129) 98 Room Air Baseline EKG: Baseline EKG: NSR Summary After explaining the procedure to the patient, she signed a consent and then brought to the stress nuclear laboratory. Patient received 0.4 mg Lexiscan for stress test, ECG, heart rate and blood pressure were monitored continuously. Resting and stress dose of radio tracer were injected, imaging was acquired and reviewed in short axis, horizontal long axis and vertical long axis views. TID: 1.16 SSS: 5 SDS: 5 EF: 62 1. Patient tolerated test well 2. Breast attenuation with mild decrease uptake at the basal to mid anterior wall and anteroseptum with mild reversibility. Could be secondary to breast attenuation 3. Normal left ventricular size, EF 63% MELODIE DELONG MD Jan 03, 2021 11:06
== END ==
LOC: CARD 08:00
PROVIDERS: ATTEND Internal Medicine Cardiovascular Disease
DX: I25.10 Atherosclerotic heart disease of native coronary artery without angina pectoris (principal); I10 Essential (primary) hypertension
CPT/HCPCS: 78452; 93017; A9502

== ENCOUNTER → 2021-01-12 11:26 | Day surgery (SDC) | payer OTHER ==
[~2021-01-12] VITALS: Ht 160 cm; Wt 98.8 kg
[2021-01-12] VITALS (9 sets, daily range): BP systolic 116–187; BP diastolic 66–104
[2021-01-12 07:15] LABS: HEMATOCRIT 46 % (35-52); HEMOGLOBIN 15.6 g/dL (11.5-16.0); MEAN CORPUSCULAR HEMOGLOBIN 32 pg (25-34); MEAN CORPUSCULAR HGB CONC 34 g/dL (32-36); MEAN CORPUSCULAR VOLUME 95 fL (80-99); PLATELET COUNT 257 10^3/uL (130-400); WHITE BLOOD COUNT 7.7 10^3/uL (4.3-11.0)
[2021-01-12 07:15] LABS: BILIRUBIN,URINE NEGATIVE (NEGATIVE); CLARITY,URINE SL CLOUDY; COLOR,URINE YELLOW; GLUCOSE, URINE (UA) NEGATIVE (NEGATIVE); KETONES,URINE NEGATIVE (NEGATIVE); LEUKOCYTE ESTERASE ,URINE NEGATIVE (NEGATIVE); NITRITE,URINE NEGATIVE (NEGATIVE); PH,URINE 5.5 (5-9); PROTEIN,URINE NEGATIVE (NEGATIVE)
[2021-01-12 07:28] LABS: BACTERIA,URINE FEW /HPF; CALCIUM OXALATE CRYSTALS,UR LARGE /LPF; RBC,URINE RARE /HPF
[2021-01-12 07:32] LABS: INR 0.9 (0.8-1.4); PROTHROMBIN TIME PATIENT 12.5 SEC (12.2-14.7)
[2021-01-12 07:40] LABS: ALBUMIN 4.4 GM/DL (3.2-4.5); BILIRUBIN,TOTAL 0.5 MG/DL (0.1-1.0); CALCIUM 9.6 MG/DL (8.5-10.1); CREATININE SERUM 0.86 MG/DL (0.60-1.30); POTASSIUM 3.8 MMOL/L (3.6-5.0); TOTAL PROTEIN 7.9 GM/DL (6.4-8.2)
--- NOTE | 2021-01-12 07:53 | Diagnostic Imaging Report ---
Indication: Chest pain. Comparison with 05/11/2020. FINDINGS: Portable chest. The lungs are well-aerated and clear. Heart is not enlarged. No pulmonary edema or hilar adenopathy. No pneumothorax or pleural effusion. No bony abnormalities. IMPRESSION: Normal portable chest. Dictated by: Dictated on workstation # [id number]
--- NOTE | 2021-01-12 08:40 | Discharge Inst-Post CATH ---
Discharge Inst-CATH/EP Problems Reviewed?: Yes Post Cardiac Cath/EP D/C Inst Follow Up/Plan Appointment with Dr. Delong's office in 2 to 4 weeks <b>CARDIAC CATH/EP PROCEDURE DISCHARGE INSTRUCTIONS</b> ACTIVITY * Go Home directly and rest. * Limit activity of the leg (or wrist if it was used) for 7 days including aer obics, swimming, jogging, bicycling, etc. * Restrict stair-climbing for 7 days if possible, if not, climb up with your non-cath leg, then bring together on the same step. * Avoid lifting, pushing, pulling or excessive movement of the affected extremi ty for 7 days. * Customary sexual activity may be resumed after 2 days-use caution not to use a position that strains or causes pain to the affected extremity. * No driving for 24 hours. * NO SMOKING. * Avoid straining for bowel movements for 7 days. * Gentle walking on level ground is allowed. * Returning to work will depend on the type of procedure and the results. Your doctor will discuss this with you. CALL YOUR DOCTOR FOR ANY OF THE FOLLOWING: *If bleeding from the puncture site occurs- Apply gentle pressure to site with clean cloth and call your doctor or EMS. * If a knot or lump forms under the skin, increases in size, or causes pain. * If bruising appears to be worsening or moving further down your leg instead of disappearing. * Temperature above 101 F. CARE OF YOUR GROIN INCISION; * Bruising or purple discoloration of the skin near the puncture site is common. * You may shower only, no bathtub bathing for 5 days. Be careful to avoid slipping as your leg may feel stiff. * If a closure device was used on your femoral artery, please see the attached guide regarding care of the device and your leg. * Leave dressing on FOR 24 hours. CARE OF YOUR WRIST INCISION; * Bruising or purple discoloration of the skin near the puncture site is common. * You may shower. * DO NOT submerge wrist. * Leave dressing on FOR 24 hours. MELODIE DELONG MD Jan 12, 2021 08:40
--- NOTE | 2021-01-12 08:43 | Cardiac Cath Report ---
Cardiac Cath Report Physician (s)/Metal Engraver (s) Physician MELODIE HOOD MD Pre-Procedure Diagnosis Pre-Procedure Diagnosis: coronary artery disease Post-Procedure Note Procedure Start Date: Jan 12, 2021 Name of Procedure: Left heart catheterization Findings/Procedure Note PROCEDURE NOTE: 55-year-old lady with a history of coronary artery disease stenting to the right coronary artery, had an abnormal stress test with anterior wall ischemia scheduled for cardiac catheterization possible PTCA. After explaining the procedure to the patient, all pros and cons were explained, all questions were answered. The patient signed the consent and then she was placed on the cardiac catheterization laboratory. Groin was prepped SL fashion local anesthesia was used. Sheath placed in the right radial artery, [place] catheter advanced to the left ventricular cavity, pressure was measured, pullback LV to aorta was done, pressure was measured, intubated the left coronary system, I was unable to intubate the right coronary artery, exchanged the catheter and used Sachi right catheter, intubated the right coronary artery and angiogram was done At the end of the procedure the sheath was removed. Vascular band deployed FINDINGS: Hemodynamics LV 110/11, end-diastolic pressure of 11 Aorta 115/74 mean of 60 ANATOMY: Left Main is free of obstructive disease Left Anterior Descending is calcified artery proximally with mild disease distally nonobstructive disease Left Circumflex has mild disease nonobstructive disease Right Coronary Artery has patent stent in the mid right coronary artery, otherwise no obstructive disease LV Gram was not done, pressure was measured. CONCLUSION: 1. Calcified proximal LAD with mild disease in the LAD nonobstructive disease 2. Patent stent in the mid right coronary artery with mild disease nonobstructive disease, mild circumflex artery disease 3. Normal left ventricular end-diastolic pressure DISCUSSION AND RECOMMENDATION: Abnormal stress test is probably due to extracardiac attenuation, nonobstructive disease in the LAD. Medical therapy is recommended no intervention is needed Anesthesia Type: Conscious Sedation Estimated blood loss (mL): 10 ml Contrast Amount: 35 ml Total Radiation Dose: 341 mGy Post-Procedure Diagnosis Post-operative diagnosis: Chest pain Coronary artery disease Hypertension Hyperlipidemia MELODIE HOOD MD Jan 12, 2021 08:43
--- NOTE | 2021-01-12 09:37 | Conscious Sedation/ASA ---
Conscious Sedation Pre-Proced Time 08:00 ASA Score 3 For ASA 3 and 4: Consider anesthesia and medical clearance. Also, for patients with a history of failed moderate sedation consider anesthesia. Airway Lungs Heart ASA score ASA 1: a normal healthy patient ASA 2: a patient with a mild systemic disease (mid diabetes, controlled hypertension, obesity x ASA 3: a patient with a severe systemic disease that limits activity (angina, COPD, prior Myocardial infarction) ASA 4: a patient with an incapacitating disease that is a constant threat to life (CHF, renal failure) ASA 5: a moribund patient not expected to survive 24 hrs. (ruptured aneurysm) ASA 6: a declared brain- patient whose organs are being harvested. For emergent operations, add the letter E after the classification Mallampati Classification Grade 3 Sedation Plan Analgesia, Amnesia, Plan communicated to team members, Discussed options with patient/fam, Discussed risks with patient/fam The patient is an appropriate candidate to undergo the planned procedure, sedation, and anesthesia. The patient immediately re-assessed prior to indication. MELODIE HOOD MD Jan 12, 2021 09:37
[~2021-01-12 11:26] MED LIST changes: -CATHETER FLUSH 10 ML SYR IV PRN; +HEParin (CATH LAB) 2,000 ML IV ONE; +HEParin 1000 UNIT/ML (10ML VIAL) FOR BOLUS ONE; +LEVO50TA6 PO; +LIDOCAINE 1% INJ 20 ML 20 ML VIAL ONE; +LISI-729 PO; +MIDAZOLAM 5 MG/5 ML (VERSED) VIAL ONE; +NITRO DRIP 25000 MCG/D5W 250 ML IV ONE; +NS IV 1000 ML 1,000 ML IV SCH; +NS IV 1000 ML 1,000 ML ONE; -REGADENOSON 0.4 MG/5 ML SYR (LEXISCAN) IV ONE; +VERAPAMIL 5 MG/2 ML (CALAN) VIAL IV ONE; +fentaNYL INJ 100 MCG/2 ML AMP ONE
== END ==
LOC: CATH 11:26
PROVIDERS: ATTEND Internal Medicine Cardiovascular Disease
DX: I25.10 Atherosclerotic heart disease of native coronary artery without angina pectoris (principal); I65.23 Occlusion and stenosis of bilateral carotid arteries; I11.0 Hypertensive heart disease with heart failure; I50.9 Heart failure, unspecified; K21.9 Gastro-esophageal reflux disease without esophagitis; E78.5 Hyperlipidemia, unspecified; E03.9 Hypothyroidism, unspecified; F41.9 Anxiety disorder, unspecified; F17.210 Nicotine dependence, cigarettes, uncomplicated; Z79.891 Long term (current) use of opiate analgesic; Z79.899 Other long term (current) drug therapy; Z79.82 Long term (current) use of aspirin; Z79.890 Hormone replacement therapy; Z83.3 Family history of diabetes mellitus; Z82.49 Family history of ischemic heart disease and other diseases of the circulatory system
CPT/HCPCS: 36430; 71045; 80053; 80061; 81000; 85027; 85610; 85730; 87081; 93458; C1894; 36415

== ENCOUNTER 2021-10-25 06:16 | Emergency (ER) | payer OTHER ==
[~2021-10-25] VITALS: Ht 160 cm; Wt 95.8 kg
[~2021-10-25 06:16] MED LIST changes: +CYCL10TA25 PO; -CYCL10TA9 PO; -HEParin (CATH LAB) 2,000 ML IV ONE; -HEParin 1000 UNIT/ML (10ML VIAL) FOR BOLUS ONE; -LIDOCAINE 1% INJ 20 ML 20 ML VIAL ONE; -LISI-729 PO; +LISI5TAB20 PO; -MIDAZOLAM 5 MG/5 ML (VERSED) VIAL ONE; -NITRO DRIP 25000 MCG/D5W 250 ML IV ONE; -NS IV 1000 ML 1,000 ML IV SCH; -NS IV 1000 ML 1,000 ML ONE; -VERAPAMIL 5 MG/2 ML (CALAN) VIAL IV ONE; -fentaNYL INJ 100 MCG/2 ML AMP ONE
--- NOTE | 2021-10-25 06:36 | ED Chest Pain ---
General Chief Complaint: Chest Pain Stated Complaint: CP Source: patient Exam Limitations: no limitations History of Present Illness Date Seen by Provider: Oct 25, 2021 Time Seen by Provider: 06:20 Initial Comments 56-year-old female presents to the emergency department today for chest pain. Symptoms started yesterday morning at about 9:00 and have been intermittent through the day yesterday but constant for about an hour and a half this morning. Is described as a squeezing sensation near her left breast and into her left back. It is actually relieved a little bit by exertion and movement. It is made worse by lying down. No associated symptoms to include fevers chills nausea vomiting diaphoresis or shortness of breath. No recent illnesses. She does have a history of cardiac disease with a stent about 3 years ago. She has had several negative stress tests since that time, most recently 4 to 5 months ago per her report. She takes as needed 5 mg lisinopril for systolic blood pressure greater than 140. She took 1 of these tablets yesterday. Has not taken any this morning and does not use them regularly. Record review show negative heart cath in December 2020. Allergies and Home Medications Allergies Coded Allergies: codeine (Unverified Allergy, Mild, SWELLING, 10/03/08) hydrocodone (Unverified Adverse Reaction, Intermediate, hives, 04/26/12) Uncoded Allergies: SEV. ANGLE INHIBITORS (Allergy, Mild, SWELLING, 10/03/08) SEVERAL ANTIBIOTIC (Allergy, Mild, VOMITING, 10/03/08) Patient Home Medication List Home Medication List Reviewed: Yes Alprazolam (Xanax) 0.5 Mg Tablet, 0.5 MG PO BID PRN for ANXIETY, (Reported) Entered as Reported by: TRISH LEBRON on 07/17/18 07 Aspirin (Aspirin EC) 81 Mg Tablet.dr, 81 MG PO HS, (Reported) Entered as Reported by: SIA MCLAIN on 01/12/21 0724 Atorvastatin Calcium (Atorvastatin Calcium) 10 Mg Tablet, 10 MG PO HS, (Reported) Entered as Reported by: SIA MCLAIN on 01/12/21 0724 Levothyroxine Sodium (Levothyroxine Sodium) 50 Mcg Tablet, 75 MCG PO DAILY, (Reported) Entered as Reported by: SIA MCLAIN on 01/12/21 0755 Review of Systems Review of Systems Constitutional: no symptoms reported EENTM: No Symptoms Reported Respiratory: No Symptoms Reported Cardiovascular: Chest Pain Gastrointestinal: No Symptoms Reported Genitourinary: No Symptoms Reported Musculoskeletal: no symptoms reported Skin: no symptoms reported Psychiatric/Neurological: No Symptoms Reported Endocrine: No Symptoms Reported Hematologic/Lymphatic: No Symptoms Reported Past Uipfsze-Agntnp-Dyqvit Hx Patient Social History Tobacco Use?: Yes Tobacco type used: Cigarettes Smoking Status: Current Everyday Smoker Use of E-Cig and/or Vaping dev: No Substance use?: Yes Substance type: Marijuana Substance frequency: Couple times a week Alcohol Use?: No Pt feels they are or have been: No Immunizations Up To Date Tetanus Booster (TDap): Less than 5yrs Influenza Vaccine Up-to-Date: No; Not Current First/Initial COVID19 Vaccinat: DENIES Second COVID19 Vaccination Mckinley: DENIES Third COVID19 Vaccination Date: DENIES COVID19 Vaccine 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: 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 Seasonal Allergies Seasonal Allergies: Yes Past Medical History Surgeries: Yes (ANAL FISTULA, COLONSCOPY, resection of vocal cord polyps) Section, Coronary Stent, Eye Surgery, Thyroidectomy, Tubal Ligation Respiratory: No COPD Currently Using CPAP: No Currently Using BIPAP: No Cardiac: Yes Coronary Artery Disease, High Cholesterol, Hypertension Neurological: No Reproductive Disorders: No Female Reproductive Disorders: Denies 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 Sexually Transmitted Disease: No HIV/AIDS: No Genitourinary: No Gastrointestinal: Yes Gastroesophageal Reflux, Hemorrhoids Musculoskeletal: Yes Chronic Back Pain Endocrine: Yes Hypothyroidsim HEENT: Yes Cataract Loss of Vision: Denies Hearing Impairment: Denies Cancer: No Psychosocial: Yes Anxiety Integumentary: No Blood Disorders: No Family Medical History Reviewed Nursing Family Hx No Pertinent Family Hx, Hypertension Physical Exam Vital Signs Vital Signs - First Documented 10/25/21 06:23 Temp 36.7 Pulse 80 Resp 18 B/P (MAP) 217/113 (147) Pulse Ox 98 O2 Delivery Room Air Capillary Refill : Height, Weight, BMI Height: 5'3.00" Weight: 218lbs. 0.0oz. 98.399033lr; 38.59 BMI Method:Stated General Appearance: No Apparent Distress, WD/WN HEENT: Normal ENT Inspection, Pharynx Normal Neck: Normal Inspection, Supple Respiratory: Lungs Clear, Normal Breath Sounds, No Accessory Muscle Use, No Respiratory Distress, Other (Some mild tenderness palpation the superior portion of the left breast. No crepitus or deformity.) Cardiovascular: Regular Rate, Rhythm, No Edema, No Gallop, No JVD, No Murmur, Normal Peripheral Pulses Gastrointestinal: Normal Bowel Sounds, No Organomegaly, No Pulsatile Mass, Non Tender, Soft Extremity: Normal Capillary Refill, Normal Inspection, Non Tender, No Calf Tenderness, No Pedal Edema Neurologic/Psychiatric: Alert, Oriented x3, Normal Mood/Affect Progress/Results/Core Measures Results/Orders Lab Results Laboratory Tests Test 10/25/21 06:30 10/25/21 08:33 Range/Units White Blood Count 7.6 4.3-11.0 10^3/uL Red Blood Count 4.95 3.80-5.11 10^6/uL Hemoglobin 15.7 11.5-16.0 g/dL Hematocrit 46 35-52 % Mean Corpuscular Volume 92 80-99 fL Mean Corpuscular Hemoglobin 32 25-34 pg Mean Corpuscular Hemoglobin Concent 35 32-36 g/dL Red Cell Distribution Width 12.6 10.0-14.5 % Platelet Count 264 130-400 10^3/uL Mean Platelet Volume 8.9 L 9.0-12.2 fL Immature Granulocyte % (Auto) 0 % Neutrophils (%) (Auto) 47 42-75 % Lymphocytes (%) (Auto) 41 12-44 % Monocytes (%) (Auto) 8 0-12 % Eosinophils (%) (Auto) 3 0-10 % Basophils (%) (Auto) 1 0-10 % Neutrophils # (Auto) 3.6 1.8-7.8 10^3/uL Lymphocytes # (Auto) 3.2 1.0-4.0 10^3/uL Monocytes # (Auto) 0.6 0.0-1.0 10^3/uL Eosinophils # (Auto) 0.2 0.0-0.3 10^3/uL Basophils # (Auto) 0.1 0.0-0.1 10^3/uL Immature Granulocyte # (Auto) 0.0 0.0-0.1 10^3/uL Sodium Level 142 135-145 MMOL/L Potassium Level 3.8 3.6-5.0 MMOL/L Chloride Level 105 98-107 MMOL/L Carbon Dioxide Level 24 21-32 MMOL/L Anion Gap 13 5-14 MMOL/L Blood Urea Nitrogen 14 7-18 MG/DL Creatinine 0.96 0.60-1.30 MG/DL Estimat Glomerular Filtration Rate 70 BUN/Creatinine Ratio 15 Glucose Level 128 H 70-105 MG/DL Calcium Level 9.6 8.5-10.1 MG/DL Troponin I < 0.028 < 0.028 <0.028 NG/ML My Orders Orders - ALEXIS URIAS DO Cbc With Automated Diff (10/25/21 06:44) Basic Metabolic Panel (10/25/21 06:44) Troponin I Richard (10/25/21 06:44) Chest Pa/Lat (2 View) (10/25/21 06:44) Aspirin Enteric Coated Tablet (Ecotrin T (10/25/21 06:45) Ed Iv/Invasive Line Start (10/25/21 06:44) Nitroglycerin 0.4 Mg Btl 25's (Nitrostat (10/25/21 06:45) Aspirin Chewable Tablet (Baby Aspirin Ch (10/25/21 07:00) Ekg Tracing (10/25/21 06:32) Troponin I Richard (10/25/21 08:20) Lisinopril Tablet (Zestril Tablet) (10/25/21 07:30) Medications Given in ED Current Medications Medications Dose Ordered Sig/Anju Route Start Time Stop Time Status Last Admin Dose Admin Aspirin 324 mg ONCE ONCE PO 10/25/21 07:00 10/25/21 07:01 DC 10/25/21 07:04 324 MG Lisinopril 20 mg ONCE ONCE PO 10/25/21 07:30 10/25/21 07:31 DC 10/25/21 08:46 20 MG Nitroglycerin 0.4 mg ONCE ONCE SL 10/25/21 06:45 10/25/21 06:48 DC 10/25/21 07:05 0.4 MG Vital Signs/I&O 10/25/21 06:23 Temp 36.7 Pulse 80 Resp 18 B/P (MAP) 217/113 (147) Pulse Ox 98 O2 Delivery Room Air Progress Progress Note : Time: 07:30 Progress Note Pain slightly improved, BP improving. Getting ready to give 2nd nitro. WIll also give oral Lisinopril for longer term BP control. She does take very low dose (5mg) prn at home. Has not had any today. Initial troponin neg. CXR normal. EKG non ischemic. Continue to monitor and repeat troponin at 0830. Comment EKG shows sinus rhythm at 73 bpm. Normal intervals. Normal axis. No ST or T wave abnormalities. No ectopy. Diagnostic Imaging Diagonstic Imaging: Xray Plain Films/CT/US/NM/MRI: chest Comments [facility], [place] NAME: BRIGID WALLACE [facility] REC#: [id number] PT STATUS: REG ER : 1965 PHYSICIAN: ALEXIS URIAS DO ADMIT DATE: 10/25/21/ER Draft Date of Exam:10/25/21 CHEST PA/LAT (2 VIEW) Indication: Chest pain Portable chest 7:14 AM Heart size and pulmonary vascularity are normal. Lungs are clear. There are no effusions or pneumothoraces. IMPRESSION: No acute abnormalities in the chest. Dictated on workstation # [id number] Dict: 10/25/2116 Trans: 10/25/21 0719 [facility] [id number] Interpreted by: CLARICE CLEVELAND MD Electronically signed by: Departure Communication (Admissions) Patient is hemodynamically stable. She does have reproducible chest pain on exam. She had a negative heart cath December 2020 and a negative stress test since that time. I believe there is low likelihood that this is related to a cardiac event at this time. 2 sets of negative cardiac enzymes and EKG is nonischemic. She did have some significant hypertension on arrival. Treated initially with nitroglycerin given p.o. lisinopril which she has taken at home in the past. She is discharged home with recommendation to keep a log of her blood pressure medicines and return to care should her symptoms change in any way concerning to her. She is comfortable. Current plan of care. Recommended she follow-up with her doctor in 2 to 4 days for further evaluation. Impression Primary Impression: Chest wall pain Disposition: HOME, SELF-CARE Condition: Stable Departure-Patient Inst. Decision time for Depature: 09:05 Referrals: NO,LOCAL PHYSICIAN (PCP) Primary Care Physician MERCEDES TAYLOR (Family) Primary Care Physician Patient Instructions: Chest Pain That Is Not Caused by the Heart (DC) Add. Discharge Instructions: Your blood pressure was high here today. Please keep a log of your blood pressures by taking them a couple of times a day. We will go ahead and start her home lisinopril dose. Please follow-up with your primary doctor in the next 48 to 72 hours for further evaluation and treatment recommendations. I believe this is low likelihood to be coming from the heart given that I can press on her chest to make the pain more prominent and the fact that you have had a negative heart cath and stress test recently. This is never certain however so if you develop severe symptoms or if her symptoms are changing in any way concerning to you please return to the emergency department for further evaluation. All discharge instructions reviewed with patient and/or family. Voiced understanding. ALEXIS URIAS DO Oct 25, 2021 06:36
[2021-10-25] MEDS ORDERED: ASPIRIN E.C. 81 MG (ECOTRIN) TAB PO ONE (06:45)
[2021-10-25] MEDS ORDERED: NITROGLYCERIN 0.4 MG SL TABS BTL 25'S SL ONE (06:45)
[2021-10-25 06:51] LABS: BASOPHILS # (AUTO) 0.1 10^3/uL (0.0-0.1); BASOPHILS % (AUTO) 1 % (0-10); EOSINOPHILS # (AUTO) 0.2 10^3/uL (0.0-0.3); EOSINOPHILS % (AUTO) 3 % (0-10); HEMATOCRIT 46 % (35-52); HEMOGLOBIN 15.7 g/dL (11.5-16.0); LYMPHOCYTES # (AUTO) 3.2 10^3/uL (1.0-4.0); LYMPHOCYTES % (AUTO) 41 % (12-44); MEAN CORPUSCULAR HEMOGLOBIN 32 pg (25-34); MEAN CORPUSCULAR HGB CONC 35 g/dL (32-36); MEAN CORPUSCULAR VOLUME 92 fL (80-99); MEAN PLATELET VOLUME 8.9 fL (9.0-12.2); MONOCYTES # (AUTO) 0.6 10^3/uL (0.0-1.0); MONOCYTES % (AUTO) 8 % (0-12); NEUTROPHILS # (AUTO) 3.6 10^3/uL (1.8-7.8); NEUTROPHILS % (AUTO) 47 % (42-75); PLATELET COUNT 264 10^3/uL (130-400); WHITE BLOOD COUNT 7.6 10^3/uL (4.3-11.0)
[2021-10-25 06:56] LABS: CHLORIDE 105 MMOL/L (98-107); POTASSIUM 3.8 MMOL/L (3.6-5.0); SODIUM 142 MMOL/L (135-145)
[2021-10-25 06:57] LABS: CALCIUM 9.6 MG/DL (8.5-10.1); GLUCOSE 128 MG/DL (70-105)
[2021-10-25 06:59] LABS: CARBON DIOXIDE 24 MMOL/L (21-32)
[2021-10-25] MEDS ORDERED: ASPIRIN 81 MG CHEW (CHILDREN'S ASA) PO ONE (07:00)
[2021-10-25 07:01] LABS: CREATININE SERUM 0.96 MG/DL (0.60-1.30); GFR ESTIMATED 70
[2021-10-25 07:02] LABS: BUN/CREATININE RATIO 15
--- NOTE | 2021-10-25 07:20 | Diagnostic Imaging Report ---
Indication: Chest pain Portable chest 7:14 AM Heart size and pulmonary vascularity are normal. Lungs are clear. There are no effusions or pneumothoraces. IMPRESSION: No acute abnormalities in the chest. Dictated by: Dictated on workstation # [id number]
[2021-10-25] MEDS ORDERED: lisINopril 20 MG (PRINIVIL) TABLET PO ONE (07:30)
[2021-10-25 09:15] VITALS: BP 160/98
== END 2021-10-25 09:15 | disposition home or self-care (01) ==
LOC: EDUNIT# 06:16 → ER 06:19
DX: R07.89 Other chest pain (principal); I10 Essential (primary) hypertension; F17.210 Nicotine dependence, cigarettes, uncomplicated; Z95.9 Presence of cardiac and vascular implant and graft, unspecified; Z79.899 Other long term (current) drug therapy; Z28.310 Unvaccinated for COVID-19
CPT/HCPCS: 36415; 71046; 80048; 84484; 85025; 93005

== ENCOUNTER → 2022-08-08 | Outpatient (CLI) | payer OTHER | LOC: CARD 11:00 | PROVIDERS: ATTEND Internal Medicine Cardiovascular Disease | DX: I11.9 Hypertensive heart disease without heart failure (principal); I08.0 Rheumatic disorders of both mitral and aortic valves; I25.10 Atherosclerotic heart disease of native coronary artery without angina pectoris | CPT/HCPCS: 93306 ==

== ENCOUNTER 2023-01-02 10:34 | Emergency (ER) | payer OTHER ==
[~2023-01-02] VITALS: Ht 160 cm; Wt 96.6 kg
[2023-01-02 11:45] LABS: BASOPHILS # (AUTO) 0.1 10^3/uL (0.0-0.1); BASOPHILS % (AUTO) 1 % (0-10); EOSINOPHILS # (AUTO) 0.1 10^3/uL (0.0-0.3); EOSINOPHILS % (AUTO) 1 % (0-10); HEMATOCRIT 44 % (35-52); HEMOGLOBIN 14.7 g/dL (11.5-16.0); LYMPHOCYTES # (AUTO) 2.3 10^3/uL (1.0-4.0); LYMPHOCYTES % (AUTO) 31 % (12-44); MEAN CORPUSCULAR HEMOGLOBIN 32 pg (25-34); MEAN CORPUSCULAR HGB CONC 34 g/dL (32-36); MEAN CORPUSCULAR VOLUME 94 fL (80-99); MEAN PLATELET VOLUME 9.2 fL (9.0-12.2); MONOCYTES # (AUTO) 0.5 10^3/uL (0.0-1.0); MONOCYTES % (AUTO) 6 % (0-12); NEUTROPHILS # (AUTO) 4.5 10^3/uL (1.8-7.8); NEUTROPHILS % (AUTO) 61 % (42-75); PLATELET COUNT 249 10^3/uL (130-400); WHITE BLOOD COUNT 7.5 10^3/uL (4.3-11.0)
[2023-01-02] MEDS ORDERED: ASPIRIN 81 MG CHEWABLE TABLET PO ONE (11:45)
[2023-01-02 11:48] LABS: ALBUMIN 4.3 GM/DL (3.2-4.5); CHLORIDE 106 MMOL/L (98-107); POTASSIUM 3.4 MMOL/L (3.6-5.0); SODIUM 141 MMOL/L (135-145)
[2023-01-02 11:49] LABS: CALCIUM 9.3 MG/DL (8.5-10.1)
[2023-01-02 11:50] LABS: GLUCOSE 136 MG/DL (70-105); INR 0.9 (0.8-1.4); PROTHROMBIN TIME PATIENT 12.5 SEC (12.2-14.7); TOTAL PROTEIN 7.4 GM/DL (6.4-8.2)
[2023-01-02 11:51] LABS: CARBON DIOXIDE 26 MMOL/L (21-32)
--- NOTE | 2023-01-02 11:51 | ED Back Pain ---
General Chief Complaint: Back Problems Stated Complaint: ABD PAIN | ABD CT ON 01/08/2023 Nursing Triage Note: PT AMBULATORY TO ER. PT REPORTS HAVING MID-THORACIC BACK PAIN, RADIATES INTO UPPER BACK AND CHEST, +NAUSEA, PT REPORTS HAVING INTERMITTENT ABD PAIN, HAS SEEN PCP FOR THE ABD PAIN, HAS OUTPATIENT CT SCHEDULED THIS NEXT WEEK, REPORTS ABD PAIN IS TOLERABLE CURRENTLY. Source of Information: Patient Exam Limitations: No Limitations (KALYN MARTELL) History of Present Illness Date Seen by Provider: Jan 02, 2023 Time Seen by Provider: 11:48 Initial Comments Patient is a 57-year-old female who presents ED with mid thoracic back pain that radiates up into her back. She experiences pain yesterday sharp stabbing pain that was initially intermittent. This pain has been fairly constant today. Pr essure radiates to the center part of her chest. She denies of any specific injury. She has had similar pain about a week ago that resolved on its own. She reports some nausea but no vomiting or diarrhea. She has had some intermittent abdominal pain but no pain at this time. She has an outpatient CT scan scheduled on Sunday. She is scheduled for a stress test by Dr. Delong on Sunday. 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 Delong is aware according to patient. She denies of any specific chest pain or shortness of breath or cough at this time. History of coronary artery disease with cardiac stent. She does take an aspirin. She does have a history of hypertension and currently hypertensive on arrival. Currently on lisinopril. History of dyslipidemia. Denies diabetes. Denies any leg swelling, leg pain, numbness and tingling. Denies of any specific injury. (KALYN MARTELL) Allergies and Home Medications Allergies Coded Allergies: codeine (Unverified Allergy, Mild, SWELLING, 10/03/08) hydrocodone (Unverified Adverse Reaction, Intermediate, hives, 04/26/12) Uncoded Allergies: SEV. ANGLE INHIBITORS (Allergy, Mild, SWELLING, 10/03/08) SEVERAL ANTIBIOTIC (Allergy, Mild, VOMITING, 10/03/08) Patient Home Medication List Home Medication List Reviewed: Yes (KALYN MARTELL) Alprazolam (Xanax) 0.5 Mg Tablet, 0.5 MG PO BID PRN for ANXIETY, (Reported) Entered as Reported by: TRISH LEBRON on 07/17/18 0728 Aspirin (Aspirin EC) 81 Mg Tablet.dr, 81 MG PO HS, (Reported) Entered as Reported by: SIA MCLAIN on 01/12/21 0724 Atorvastatin Calcium (Atorvastatin Calcium) 10 Mg Tablet, 10 MG PO HS, (Reported) Entered as Reported by: SIA MCLAIN on 01/12/21 0724 Levothyroxine Sodium (Levothyroxine Sodium) 50 Mcg Tablet, 75 MCG PO DAILY, (Reported) Entered as Reported by: SIA MCLAIN on 01/12/21 0756 Review of Systems Constitutional: No chills, No diaphoresis, No malaise, No weakness EENTM: No hearing loss, No ear pain, No blurred vision Respiratory: No cough, No dyspnea on exertion Cardiovascular: No chest pain, No edema Gastrointestinal: abdominal pain; No diarrhea; nausea; No vomiting Genitourinary: No decreased output, No discharge Musculoskeletal: back pain; No joint pain, No joint swelling; muscle pain Skin: No change in color, No change in hair/nails (KALYN MARTELL) All Other Systems Reviewed Negative Unless Noted: Yes (KALYN MARTELL) Past Xjmkpal-Lnteem-Jhzsut Hx Patient Social History Tobacco Use?: Yes Tobacco type used: Cigarettes Substance use?: No Alcohol Use?: No Pt feels they are or have been: Yes (KALYN MARTELL) Immunizations Up To Date Tetanus Booster (TDap): Less than 5yrs First/Initial COVID19 Vaccinat: DENIES Second COVID19 Vaccination Mckinley: DENIES Third COVID19 Vaccination Date: DENIES (KALYN MARTELL) Seasonal Allergies Seasonal Allergies: Yes (KALYN MARTELL) Past Medical History Surgeries: Yes (ANAL FISTULA, COLONSCOPY, resection of vocal cord polyps) Section, Coronary Stent, Eye Surgery, Thyroidectomy, Tubal Ligation Respiratory: No COPD Currently Using CPAP: No Currently Using BIPAP: No Cardiac: Yes Coronary Artery Disease, High Cholesterol, Hypertension Neurological: No Reproductive Disorders: No Female Reproductive Disorders: Denies HSE ADVISOR History: Menopausal Sexually Transmitted Disease: No HIV/AIDS: No Genitourinary: No Gastrointestinal: Yes Gastroesophageal Reflux, Hemorrhoids Musculoskeletal: Yes Chronic Back Pain Endocrine: Yes Hypothyroidsim HEENT: Yes Cataract Loss of Vision: Denies Hearing Impairment: Denies Cancer: No Psychosocial: Yes Anxiety Integumentary: No Blood Disorders: No (KALYN MARTELL) Family Medical History No Pertinent Family Hx, Hypertension (KALYN MARTELL) Physical Exam Vital Signs Vital Signs - First Documented 01/02/23 10:56 Temp 36.8 Pulse 72 Resp 16 B/P (MAP) 197/104 (135) Pulse Ox 96 O2 Delivery Room Air (SJ PAZ MD) Vital Signs Capillary Refill : (KALYN MARTELL) Height, Weight, BMI Height: 5'3.00" Weight: 218lbs. 0.0oz. [id number]; 37.00 BMI Method:Stated General Appearance: No Apparent Distress, WD/WN HEENT: PERRL/EOMI, TMs Normal, Normal ENT Inspection, Pharynx Normal Neck: Full Range of Motion, Normal Inspection, Non Tender, Supple Cardiovascular: Regular Rate, Rhythm, No Edema, No Gallop, No JVD, No Murmur Respiratory: Chest Non Tender, Lungs Clear, Normal Breath Sounds, No Accessory Muscle Use, No Respiratory Distress Gastrointestinal: Normal Bowel Sounds, No Organomegaly, No Pulsatile Mass, Non Tender Back: Normal Inspection, No CVA Tenderness, No Vertebral Tenderness Extremity: Normal Capillary Refill, Normal Inspection, Normal Range of Motion Neurologic/Psychiatric: Alert, Oriented x3, No Motor/Sensory Deficits, Normal Mood/Affect, chipper feeder II-XII Norm as Tested Skin: Normal Color, Warm/Dry (KALYN MARTELL) Progress/Results/Core Measures Results/Orders Lab Results Laboratory Tests Test 01/02/23 11:14 01/02/23 13:24 Range/Units White Blood Count 7.5 4.3-11.0 10^3/uL Red Blood Count 4.67 3.80-5.11 10^6/uL Hemoglobin 14.7 11.5-16.0 g/dL Hematocrit 44 35-52 % Mean Corpuscular Volume 94 80-99 fL Mean Corpuscular Hemoglobin 32 25-34 pg Mean Corpuscular Hemoglobin Concent 34 32-36 g/dL Red Cell Distribution Width 12.3 10.0-14.5 % Platelet Count 249 130-400 10^3/uL Mean Platelet Volume 9.2 9.0-12.2 fL Immature Granulocyte % (Auto) 0 % Neutrophils (%) (Auto) 61 42-75 % Lymphocytes (%) (Auto) 31 12-44 % Monocytes (%) (Auto) 6 0-12 % Eosinophils (%) (Auto) 1 0-10 % Basophils (%) (Auto) 1 0-10 % Neutrophils # (Auto) 4.5 1.8-7.8 10^3/uL Lymphocytes # (Auto) 2.3 1.0-4.0 10^3/uL Monocytes # (Auto) 0.5 0.0-1.0 10^3/uL Eosinophils # (Auto) 0.1 0.0-0.3 10^3/uL Basophils # (Auto) 0.1 0.0-0.1 10^3/uL Immature Granulocyte # (Auto) 0.0 0.0-0.1 10^3/uL Prothrombin Time 12.5 12.2-14.7 SEC INR Comment 0.9 0.8-1.4 Activated Partial Thromboplast Time 36 H 24-35 SEC Sodium Level 141 135-145 MMOL/L Potassium Level 3.4 L 3.6-5.0 MMOL/L Chloride Level 106 98-107 MMOL/L Carbon Dioxide Level 26 21-32 MMOL/L Anion Gap 9 5-14 MMOL/L Blood Urea Nitrogen 12 7-18 MG/DL Creatinine 0.87 0.60-1.30 MG/DL Estimat Glomerular Filtration Rate 79 BUN/Creatinine Ratio 14 Glucose Level 136 H 70-105 MG/DL Calcium Level 9.3 8.5-10.1 MG/DL Corrected Calcium 9.1 8.5-10.1 MG/DL Magnesium Level 2.0 1.6-2.4 MG/DL Total Bilirubin 0.7 0.1-1.0 MG/DL Aspartate Amino Transf (AST/SGOT) 22 5-34 U/L Alanine Aminotransferase (ALT/SGPT) 20 0-55 U/L Alkaline Phosphatase 80 40-136 U/L Myoglobin 47.0 10.0-92.0 NG/ML Troponin I < 0.028 < 0.028 <0.028 NG/ML B-Type Natriuretic Peptide 15.9 <100.0 PG/ML Total Protein 7.4 6.4-8.2 GM/DL Albumin 4.3 3.2-4.5 GM/DL Lipase 38 8-78 U/L (SJ PAZ MD) My Orders Orders - SJ PAZ MD Ekg Tracing (01/02/23 10:59) (SJ PAZ MD) Vital Signs/I&O 01/02/23 01/02/23 01/02/23 10:56 11:47 13:32 Temp 36.8 Pulse 72 65 72 Resp 16 16 16 B/P (MAP) 197/104 (135) 189/95 (126) 183/95 Pulse Ox 96 97 98 O2 Delivery Room Air Room Air Room Air (SJ PAZ MD) Blood Pressure Mean: 126 Comment Sinus rhythm, possible left atrial enlargement, 60 bpm, QRS duration 97 MS, QTc 404 MS. (KALYN MARTELL) Departure Communication (PCP) History of coronary artery disease currently follows Dr. Delong presents ED with mid upper back pain. No specific injury. Pain is not worse with rotational movement. Denies tearing type sensation but feels more like pressure radiates to the chest but no specific chest pain or shortness of breath. History of hypertension hypertensive on arrival. Differential diagnosis, aortic dissection, aneurysm, ACS, musculoskeletal pain, pneumonia, pneumothorax, pleural effusion. She has no numbness and tingling the lower extremities. Equal blood pressures bilateral. She was hypertensive. 197/104. Increase her lisinopril recently. She is scheduled for an outpatient CT scanning of her chest and abdomen on Sunday. She is scheduled for stress test on Sunday. Cardiac work-up was initiated. EKG without evidence of ST elevation or depression. She did receive a full aspirin. 10 mg hydralazine for the hypertension with slight improvement. Chest x-ray did not show any pneumonia, pneumothorax, mediastinal widening. CBC, CMP grossly unremarkable. Normal troponin BNP negative. CT of the chest and abdomen was obtained did not show any evidence of pulmonary emboli or acute aortic pathology. Atherosclerotic plaque of the aorta without aneurysm or dissection. No adenopathy, pleural fluid or pulmonary lesion. CT scan of the abdomen without any acute abnormality. Recommended a delta troponin due to the location of pain atypical type presentation. Delta troponin negative. Patient refused anything for pain. Discussed all results with patient as she felt much better and would like to be discharged. She has no significant pain with eating. No tenderness on palpation. She denies of any falls. She has no urinary symptoms. Recommend follow-up with your PCP in 2 to 3 days for reevaluation. Follow-up with cardiology. If any worsening pain to return back to ED. Suggest taking anti- inflammatory. Continue monitoring of blood pressure. Patient does not want to wait for her blood pressure to improve. Nonspecific upper back pain. (KALYN MARTELL) Impression Primary Impression: Back pain Disposition: 01 HOME, SELF-CARE Condition: Stable Departure-Patient Inst. Decision time for Depature: 13:24 (KALYN MARTELL) Referrals: MERCEDES TAYLOR (PCP) Primary Care Physician MELODIE DELONG MD Patient Instructions: Upper Back Pain (DC) Add. Discharge Instructions: If any worsening back pain short of breath or chest pain need to return back to ED. All discharge instructions reviewed with patient and/or family. Voiced understanding. ATTENDING PHYSICIAN NOTE: I was physically present as attending physician in the emergency department during the care of this patient, but I was not directly involved in the decision making or delivery of care for this patient. (SJ PAZ MD) KALYN MARTELL Jan 02, 2023 11:51 SJ PAZ MD Jan 03, 2023 17:00
[2023-01-02 11:52] LABS: BILIRUBIN,TOTAL 0.7 MG/DL (0.1-1.0)
[2023-01-02 11:54] LABS: ALKALINE PHOSPHATASE 80 U/L (40-136); CREATININE SERUM 0.87 MG/DL (0.60-1.30); GFR ESTIMATED 79
[2023-01-02 11:55] LABS: BUN/CREATININE RATIO 14
[2023-01-02 11:57] LABS: ALANINE AMINOTRANSFERASE 20 U/L (0-55)
[2023-01-02 11:58] LABS: LIPASE 38 U/L (8-78)
[2023-01-02] MEDS ORDERED: hydrALAZINE INJECTION 20 MG/ML VIAL IV ONE (12:00)
--- NOTE | 2023-01-02 12:04 | Diagnostic Imaging Report ---
INDICATION: Chest pain. COMPARISON: 10/25/2021. FINDINGS: Lungs are clear. No failure, effusion, or pneumothorax. IMPRESSION: Negative. Dictated by: Dictated on workstation # [id number]
[2023-01-02] MEDS ORDERED: NS 100 ML (IVPB) BAG IV ONE (12:45)
[2023-01-02] MEDS ORDERED: HOLD METFORMIN - RECEIVED CONTRAST 20 ML VIAL IV SCH (12:45)
[2023-01-02] MEDS ORDERED: IOHEXOL 350 MG/ML 100 ML (OMNIPAQUE 350) VIAL IV ONE (12:45)
--- NOTE | 2023-01-02 12:59 | Diagnostic Imaging Report ---
INDICATION: Chest pain and back pain between shoulder blades, history of aneurysm. TECHNIQUE: CTA of the chest and abdomen obtained with pre and post IV contrast images followed by 3-D MIP reconstructions. Dose reduction protocol was used. CTA CHEST FINDINGS: Pulmonary parenchymal vessels are well opacified with no CT evidence of pulmonary emboli. The aortic arch and great vessel origins are patent. There is scattered atherosclerotic plaquing in the aorta without evidence of dissection or aneurysm. There is no pleural or pericardial fluid. There are no enlarged mediastinal or hilar nodes. There are no enlarged axillary nodes. Lung windows demonstrate no pulmonary parenchymal nodules or infiltrates. CTA ABDOMEN FINDINGS: The liver shows diffuse low-density change compatible with fatty infiltration. There is a small cyst in the right lobe of the liver. Gallbladder is surgically absent. The spleen, adrenals, and pancreas are unremarkable. Kidneys bilaterally appear unremarkable. There is no retroperitoneal mass or adenopathy. There is no ascites or abnormal fluid collection. There appears to be a prominent fibroid in the uterus measuring 5.1 cm. The abdominal aorta shows atherosclerotic plaquing, but no evidence of aneurysm or dissection. Celiac trunk and SMA are patent with minimal plaquing. There is diffuse plaquing of the distal aorta without aortic aneurysm or dissection. There is some plaquing of the common iliac arteries with moderate narrowing. IMPRESSION: CTA chest shows no evidence of pulmonary emboli or acute aortic pathology. There is mild atherosclerotic plaquing of the aorta without aneurysm or dissection. There is no adenopathy or pleural fluid or pulmonary parenchymal lesion. CTA of the abdomen demonstrates scattered atherosclerotic plaquing in the abdominal aorta without evidence of aneurysm or dissection. There is moderate plaquing in the renal arteries on both sides without high-grade stenosis. There is diffuse fatty infiltration of the liver. There is no abdominal mass or abnormal fluid collection. Dictated by: Dictated on workstation # [id number]
[2023-01-02 13:32] VITALS: BP 183/95
== END 2023-01-02 13:31 | disposition home or self-care (01) ==
LOC: EDUNIT# 10:34 → ER 10:36
DX: M54.6 Pain in thoracic spine (principal); I10 Essential (primary) hypertension; F17.210 Nicotine dependence, cigarettes, uncomplicated; Z79.899 Other long term (current) drug therapy
CPT/HCPCS: 36415; 71045; 71275; 74175; 80053; 83690; 83735; 83874; 83880; 84484; 85025; 85610; 85730; 93005; 93041; 96374

== ENCOUNTER → 2023-01-08 | Outpatient (CLI) | payer OTHER ==
[2023-01-08] MEDS: CATHETER FLUSH 10 ML SYR IVP PRN (08:23)
[2023-01-08 09:56] VITALS: BP 149/92
--- NOTE | 2023-01-08 12:00 | Cardiology Stress Test Report ---
Stress Test Report Date of Procedure/Referring: Date of Procedure: Jan 08, 2023 PCP No,Local Physician Admitting Physician Admitting Physician: Attending Physician: Melodie Delong MD Baseline Heart Rate: 54 Baseline Blood Pressure: Blood Pressure Systolic: 149 Blood Pressure Diastolic: 92 Vital Signs Date Time Temp Pulse Resp B/P (MAP) Pulse Ox O2 Delivery O2 Flow Rate FiO2 01/08/23 09:56 54 149/92 (111) Baseline Vital Signs Vital Signs Date Time Temp Pulse Resp B/P (MAP) Pulse Ox O2 Delivery O2 Flow Rate FiO2 01/08/23 09:56 54 149/92 (111) Baseline EKG: Baseline EKG: NSR Summary: After explaining the procedure and details to the patient, she signed the consent and was brought to the stress nuclear laboratory. Patient exercised on standard Inderjit protocol, EKG, heart rate and blood pressure were monitored continuously, resting and stress doses of radio tracer were injected, imaging was acquired and reviewed in the short axis, horizontal long axis and vertical long axis views Patient was able to exercise for a total of 5.30 minutes on Inderjit protocol, METs 6.4 Maximum heart rate 145 Maximum blood pressure 251/116 Stress EKG, Minimal nondiagnostic changes Recovery EKG, Return to baseline TID: 1.16 SSS: 4 SDS: 4 EF: 56 Conclusion: Fair exercise tolerance for 5 minutes and 30 seconds on standard Inderjit protocol, 6.4 METS achieving 87% of maximal expected heart rate Appropriate heart rate response to exercise with severe hypertensive response to exercise with peak blood pressure 251/116 return to baseline during recovery Nondiagnostic EKG changes with exercise return to baseline during recovery No significant ischemia or infarction noted on SPECT images Normal left ventricular size, ejection fraction 56% MELODIE DELONG MD Jan 08, 2023 11:59
== END ==
LOC: RAD 07:52
PROVIDERS: ATTEND Internal Medicine Cardiovascular Disease
DX: I10 Essential (primary) hypertension (principal); I25.10 Atherosclerotic heart disease of native coronary artery without angina pectoris
CPT/HCPCS: 78452; 93017; A9502